=== PATIENT | male | born 1990 | race Two or more races ===

== ENCOUNTER 2022-03-03 05:45 | Emergency (ER) | payer SELFPAY ==
[~2022-03-03] VITALS: Ht 165.1 cm; Wt 136.4 kg
[2022-03-03] MEDS ORDERED: ASPIRIN CHEWABLE 81 MG TABLET. PO ONE (06:00)
[2022-03-03 06:31] LABS: BASO % 0 % (0-3); EOS # 0.1 x10^3/uL (0.0-0.7); EOS % 1 % (0-3); HEMATOCRIT 43.3 % (39.0-53.0); HEMOGLOBIN 14.8 g/dL (13.0-17.5); LYMPH # 2.4 x10^3/uL (1.0-4.8); LYMPH % 20 % (24-48); MEAN CORPUSCULAR HEMOGLOBIN 30 pg (25-35); MEAN CORPUSCULAR HGB CONC 34 g/dL (31-37); MEAN CORPUSCULAR VOLUME 87 fL (79-100); MONO # 1.3 x10^3/uL (0.0-1.1); MONO % 10 % (0-9); NEUT # 8.5 x10^3/uL (1.8-7.7); NEUT % 69 % (31-73); PLATELET COUNT 249 x10^3/uL (140-400); RED BLOOD COUNT 4.99 x10^6/uL (4.30-5.70); RED CELL DISTRIBUTION WIDTH 12.7 % (11.5-14.5); WHITE BLOOD COUNT 12.3 x10^3/uL (4.0-11.0)
[2022-03-03 06:41] LABS: CALCIUM 8.9 mg/dL (8.5-10.1); CREATININE 0.9 mg/dL (0.7-1.3); GFR 98.4; POTASSIUM 3.2 mmol/L (3.5-5.1)
--- NOTE | 2022-03-03 06:42 | RAD ---
Study: XR CHEST 1V Indication: Chest pain. Comparison: None. Findings: Mild asymmetric elevation of the right hemidiaphragm. Overlying streaky densities and a nodular opaci ty at the right hilum Small pleural effusion on the right. No pneumothorax. The cardiomediastinal yamileth houette is within normal limits for size. Impression: Small pleural effusion on the right and findings at the right lung base could represent a combination of atelectasis and pneumonia. Correlate for any clinical or laboratory findings that would suggest a ctive infection. Follow-up is recommended to confirm resolution. Electronically signed by: NICOLE BATRES MD (03/03/2022 6:40 AM) [facility]
--- NOTE | 2022-03-03 06:50 | EKG ---
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
[2022-03-03 06:52] LABS: ALBUMIN 3.7 g/dL (3.4-5.0); ALBUMIN/GLOBULIN RATIO 0.8 (1.0-1.7); MAGNESIUM 2.1 mg/dL (1.8-2.4); TOTAL BILIRUBIN 0.5 mg/dL (0.2-1.0); TOTAL PROTEIN 8.2 g/dL (6.4-8.2)
--- NOTE | 2022-03-03 06:52 | EKG ---
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
[2022-03-03 06:53] LABS: BARBITURATES NEG (NEG); BENZODIAZEPINES NEG (NEG); CANNABINOIDS NEG (NEG); COCAINE NEG (NEG); METHADONE NEG (NEG); OPIATES NEG (NEG); PHENCYCLIDINE NEG (NEG)
[2022-03-03 06:54] LABS: AMPHETAMINE/METHAMPHETAMINE NEG (NEG)
[2022-03-03] MEDS ORDERED: IOHEXOL 350 MG/ML 100 ML VIAL. IV ONE (07:00)
[2022-03-03] MEDS ORDERED: CONTRAST GIVEN. MC PRN (07:00)
[2022-03-03] MEDS ORDERED: IV NORMAL SALINE 1000ML BAG 1,000 ML IV ONE ×2 (07:15→07:45)
--- NOTE | 2022-03-03 07:27 | RAD ---
EXAMINATION: CT Pulmonary Angiogram with IV contrast INDICATION: Reason: CHEST PAIN possible PE / Spl. Instructions: OMNI 350 INJ. 100 MLS / History: COMPARISON: Similar chest radiograph TECHNIQUE: Using helical technique, CT data from the thoracic inlet through the upper abdomen was obt ained during rapid IV contrast infusion. The examination was timed to the pulmonary arterial system t o generate a CT angiographic study. 3D MIPS, sagittal and coronal reformats were generated. FINDINGS: Vascular: The study is diagnostic to the level of the lobar pulmonary arteries. Contrast bolus timing limits ev aluation of the segmental and subsegmental branches Pulmonary arteries: No evidence of acute or chronic pulmonary embolism. The pulmonary arteries are no rmal in size. Thoracic aorta: Normal in size. Pulmonary veins: Normal drainage into the left atrium. Coronary arteries: Normal origins. No detectable calcified coronary atherosclerosis. Systemic veins: Within normal limits. Heart: The heart is normal in size. No right heart strain. No pericardial effusion. Chest: Lungs/Pleura: Small right pleural effusion measuring greater than simple fluid. Right lower lobe cons olidation with associated air bronchograms may represent consolidation or atelectasis. 4 mm subpleura l nodule in the lateral segment of the right middle lobe. Additional subcentimeter nodular appearance along the pleura of the right lower lobe as seen on axial image 83 and 82. Central airway is patent. Mediastinum: Prominent right hilar lymph nodes measuring up to 8 mm in short axis few prominent right paratracheal lymph nodes. No pathologically enlarged mediastinal or left hilar adenopathy. The visua lized thyroid and the esophagus are unremarkable Axilla/Soft Tissue: No supraclavicular or axillary adenopathy. Regional soft tissues are within veronica l limits. Upper abdomen: Diffuse hepatic steatosis. No evidence of acute process in the visualized upper abdome n. Bones: No evidence of acute fractures or aggressive osseous lesions. IMPRESSION: Vascular: 1. No evidence of pulmonary embolism to the level of the lobar pulmonary arteries. Chest: 1. Small right pleural effusion measuring greater than simple fluid superimposed infection or possibl y malignant pleural effusion is not excluded. Right lower lobe consolidation possibly representing a combination of pneumonia and atelectasis. Nonspecific subpleural nodularity along the dependent porti on of the right lower lobe. Recommend follow-up to resolution to exclude underlying malignancy. 2. Prominent right hilar lymph nodes likely reactive. Recommend attention on follow-up. 3. Diffuse hepatic steatosis. PRQS compliance statement - One or more of the following individualized dose reduction techniques wer e utilized for this study: 1. Automated exposure control 2. Adjustment of the mA and/or kV according to patient size 3. Use of iterative reconstruction technique Electronically signed by: Kenyon Irvin DO (03/03/2022 7:25 AM) [id number]
[2022-03-03] MEDS ORDERED: AZITHROMYCIN 250 MG TABLET. PO ONE (07:45)
[2022-03-03] MEDS ORDERED: cefTRIAXone IV Push 1 GM VIAL. IVP ONE (07:45)
[2022-03-03] MEDS ORDERED: POTASSIUM CHLORIDE 20MEQ 100 ML IV ONE (08:00)
[2022-03-03] MEDS ORDERED: MORPHINE SULFATE 4 MG/ML INJ. IVP ONE (08:45)
[2022-03-03 09:45] VITALS: BP 179/80
[2022-03-03] MEDS ORDERED: CEFD300C PO (09:48)
[2022-03-03] MEDS ORDERED: AZIT250T6 PO (09:48)
--- NOTE | 2022-03-03 10:07 | PHYS DOC ---
Past Medical History Past Surgical History: No Surgical History Smoking Status: Never Smoker Alcohol Use: Rarely General Adult EDM: Chief Complaint: CHEST PAIN-CARDIAC NATURE HPI: HPI: Patient is a 31 year old male who presents with right-sided chest pain since last night. 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 He states that it gradually progressed until it became a sharp pain in the right side. Patient states that he feels warm as well. He states he feels short of breath. He is not requiring oxygen. His vital signs are within normal limits except for tachycardia. He is in sinus rhythm. He states he presented this morning because he was concerned about his symptoms. Review of Systems: Review of Systems: Constitutional: Denies fever or chills. Although patient states that he does feel warm [] Eyes: Denies change in visual acuity. [] HENT: Denies nasal congestion or sore throat. [] Respiratory: Denies cough positive shortness of breath. [] Cardiovascular: Positive chest pain no edema. [] GI: Denies abdominal pain, nausea, vomiting, bloody stools or diarrhea. [] : Denies dysuria. [] Musculoskeletal: Denies back pain or joint pain. [] Integument: Denies rash. [] Neurologic: Denies headache, focal weakness or sensory changes. [] Endocrine: Denies polyuria or polydipsia. [] Lymphatic: Denies swollen glands. [] Psychiatric: Denies depression or anxiety. [] Heart Score: C/O Chest Pain: Yes HEART Score for Chest Pain: HEART Score for Chest Pain Response (Comments) Value History Slighlty/Non-Suspicious 0 ECG Normal 0 Age < 45 0 Risk Factors No Risk Factors 0 Troponin < Normal Limit 0 Total 0 Risk Factors: Risk Factors: obesity. Risk Scores: Score 0 - 3: 2.5% MACE over next 6 weeks - Discharge Home Current Medications: Current Medications Medications (Trade) Dose Ordered Sig/Evgeny Start Time Stop Time Status Last Admin Dose Admin Aspirin (Aspirin Chewable) 324 mg 1X ONCE 03/03/22 06:00 03/03/22 06:06 DC 03/03/22 06:21 324 MG Azithromycin (Zithromax) 500 mg 1X ONCE 03/03/22 07:45 03/03/22 07:46 DC 03/03/22 08:23 500 MG Ceftriaxone Sodium (Rocephin) 1 gm 1X ONCE 03/03/22 07:45 03/03/22 07:46 DC 03/03/22 08:23 1 GM Info (CONTRAST GIVEN -- Rx MONITORING) 1 each PRN DAILY PRN 03/03/22 07:00 03/05/22 06:59 Iohexol (Omnipaque 350 Mg/ml) 100 ml 1X ONCE 03/03/22 07:00 03/03/22 07:01 DC 03/03/22 07:09 100 ML Morphine Sulfate (Morphine Sulfate) 4 mg 1X ONCE 03/03/22 08:45 03/03/22 08:46 DC 03/03/22 08:42 4 MG Potassium Chloride/Water 100 ml @ 50 mls/hr 1X ONCE 03/03/22 08:00 03/03/22 09:59 DC 03/03/22 07:22 50 MLS/HR Sodium Chloride 1,000 ml @ 1,000 mls/hr 1X ONCE 03/03/22 07:45 03/03/22 08:44 DC 03/03/22 08:30 1,000 MLS/HR Allergies: Allergies: Allergies Coded Allergies Type Severity Reaction Last Updated Verified No Known Drug Allergies 03/03/22 No Physical Exam: PE: Constitutional: Well developed, well nourished, no acute distress, non-toxic appearance. [] HENT: Normocephalic, atraumatic, bilateral external ears normal, oropharynx moist, no oral exudates, nose normal. [] Eyes: PERRLA, EOMI, conjunctiva normal, no discharge. [] Neck: Normal range of motion, no tenderness, supple, no stridor. [] Cardiovascular:Heart rate tachycardic, regular rhythm, no murmur [] Lungs & Thorax: Bilateral breath sounds diminished to auscultation [] Abdomen: Bowel sounds normal, soft, no tenderness, no masses, no pulsatile masses. [] Skin: Warm, dry, no erythema, no rash. [] Back: No tenderness, no CVA tenderness. [] Extremities: No tenderness, no cyanosis, no clubbing, ROM intact, no edema. [] Neurologic: Alert and oriented X 3, normal motor function, normal sensory function, no focal deficits noted. [] Psychologic: Affect normal, judgement normal, mood normal. [] Current Patient Data: Labs: Laboratory Tests Test 03/03/22 06:05 03/03/22 06:10 03/03/22 06:35 03/03/22 06:37 White Blood Count 12.3 x10^3/uL (4.0-11.0) H Red Blood Count 4.99 x10^6/uL (4.30-5.70) Hemoglobin 14.8 g/dL (13.0-17.5) Hematocrit 43.3 % (39.0-53.0) Mean Corpuscular Volume 87 fL (79-100) Mean Corpuscular Hemoglobin 30 pg (25-35) Mean Corpuscular Hemoglobin Concent 34 g/dL (31-37) Red Cell Distribution Width 12.7 % (11.5-14.5) Platelet Count 249 x10^3/uL (140-400) Neutrophils (%) (Auto) 69 % (31-73) Lymphocytes (%) (Auto) 20 % (24-48) L Monocytes (%) (Auto) 10 % (0-9) H Eosinophils (%) (Auto) 1 % (0-3) Basophils (%) (Auto) 0 % (0-3) Neutrophils # (Auto) 8.5 x10^3/uL (1.8-7.7) H Lymphocytes # (Auto) 2.4 x10^3/uL (1.0-4.8) Monocytes # (Auto) 1.3 x10^3/uL (0.0-1.1) H Eosinophils # (Auto) 0.1 x10^3/uL (0.0-0.7) Basophils # (Auto) 0.0 x10^3/uL (0.0-0.2) Sodium Level 136 mmol/L (136-145) Potassium Level 3.2 mmol/L (3.5-5.1) L Chloride Level 100 mmol/L (98-107) Carbon Dioxide Level 25 mmol/L (21-32) Anion Gap 11 (6-14) Blood Urea Nitrogen 10 mg/dL (8-26) Creatinine 0.9 mg/dL (0.7-1.3) Estimated GFR (Cockcroft-Gault) 98.4 BUN/Creatinine Ratio 11 (6-20) Glucose Level 243 mg/dL (70-99) H Calcium Level 8.9 mg/dL (8.5-10.1) Magnesium Level 2.1 mg/dL (1.8-2.4) Total Bilirubin 0.5 mg/dL (0.2-1.0) Aspartate Amino Transferase (AST) 17 U/L (15-37) Alanine Aminotransferase (ALT) 46 U/L (16-63) Alkaline Phosphatase 90 U/L (46-116) Troponin I High Sensitivity 5 ng/L (4-75) KG-Ubc-Z-Type Natriuretic Peptide 17 pg/mL (0-124) Total Protein 8.2 g/dL (6.4-8.2) Albumin 3.7 g/dL (3.4-5.0) Albumin/Globulin Ratio 0.8 (1.0-1.7) L Lipase 78 U/L (73-393) Lactic Acid Level 1.0 mmol/L (0.4-2.0) Urine Opiates Screen Neg (NEG) Urine Methadone Screen Neg (NEG) Urine Barbiturates Neg (NEG) Urine Phencyclidine Screen Neg (NEG) Urine Amphetamine/Methamphetamine Neg (NEG) Urine Benzodiazepines Screen Neg (NEG) Urine Cocaine Screen Neg (NEG) Urine Cannabinoids Screen Neg (NEG) Urine Ethyl Alcohol Neg (NEG) D-Dimer (Concetta) 2.02 ug/mlFEU (0.00-0.50) H Test 03/03/22 06:50 03/03/22 09:13 SARS-CoV-2 Antigen (Rapid) Negative (NEGATIVE) Troponin I High Sensitivity 5 ng/L (4-75) Laboratory Tests 03/03/22 06:05 Laboratory Tests 03/03/22 06:05 Vital Signs: Vital Signs Date Time Temp Pulse Resp B/P (MAP) Pulse Ox O2 Delivery O2 Flow Rate FiO2 03/03/22 08:42 20 95 03/03/22 08:30 93 164/89 (114) Room Air 03/03/22 05:55 98.2 98.2 EKG: EKG: Sinus tachycardia [] Radiology/Procedures: Radiology/Procedures: Chest x-ray with right lower lobe pneumonia versus atelectasis [] Impression: 31-year-old male with right-sided pneumonia, community-acquired pneumonia Course & Med Decision Making: Course & Med Decision Making Pertinent Labs and Imaging studies reviewed. (See chart for details) 31-year-old male with community-acquired pneumonia. Consistent with CT scan and chest x-ray. Pulmonary embolus ruled out. CT scan noted that there may be an underlying malignancy and should follow-up for repeat imaging after resolution of pneumonia. Patient was given antibiotics as well as fluids in the emergency department. He was given 2 L normal saline as well as ceftriaxone and azithromycin. Patient was monitored. Pain was controlled. Patient did well after receiving medications. He was given prescriptions for oral medications for his antibiotics. Patient was stable at the time of discharge patient was comfortable going home for self-care. Patient stated that he will follow-up with his primary care physician next week. He was instructed that he should request imaging to review the chest again. Patient states that he would comply. Otherwise patient is doing well. All questions answered. Patient stable for time discharge, no criteria for inpatient admission. Dragon Disclaimer: Dragon Disclaimer: This electronic medical record was generated, in whole or in part, using a voice recognition dictation system. Departure Departure Impression: Primary Impression: Community acquired pneumonia Disposition: HOME / SELF CARE / HOMELESS Condition: GOOD Patient Instructions: Pneumonia, Adult, [id number] Additional Instructions: Termine joelle antibioticos Jamison seguimiento con saunders doctor de cabezera en ashlee semana Si se siente peor, puede regresar a la emergencia para evaluacion Scripts Cefdinir (CEFDINIR) 300 Mg Capsule 1 CAP PO BID, #14 CAP Prov: ZANDER JOYCE MD 03/03/22 Azithromycin (AZITHROMYCIN TABLET) 250 Mg Tablet 250 MG PO DAILY for ANTI-BIOTIC, #4 TAB 0 Refills Prov: ZANDER JOYCE MD 03/03/22 ZANDER JOYCE MD Mar 03, 2022 10:07
== END 2022-03-03 09:56 | disposition home or self-care (01) ==
LOC: ER 05:45
DX: J18.9 Pneumonia, unspecified organism (principal); Z20.822 Contact with and (suspected) exposure to COVID-19
CPT/HCPCS: 36415; 71045; 71275; 80053; 80307; 83605; 83690; 83735; 83880; 84484; 85025; 85379; 87426; 93005; 96365; 96375; 99285; J0696; J2270; J3480; J7030; Q9967

== ENCOUNTER 2022-04-05 15:52 | Inpatient (IN) | payer SELFPAY ==
[~2022-04-05] VITALS: Ht 180.3 cm; Wt 115.3 kg
[~2022-04-05 15:52] MED LIST: AZIT250T6 PO; CEFD300C PO
--- NOTE | 2022-04-05 16:19 | EKG ---
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
[2022-04-05] MEDS ORDERED: ACETAMINOPHEN 325 MG TABLET. PO ONE (16:30)
[2022-04-05] MEDS ORDERED: IV NORMAL SALINE 1000ML BAG 1,000 ML IV ONE (16:30)
--- NOTE | 2022-04-05 16:41 | RAD ---
XR CHEST 1V History: Shortness of breath Comparison: CT and chest x-ray 03/03/2022 Technique: Portable AP radiograph of the chest. Findings: Increasing now large right pleural effusion with adjacent right airspace opacity. No left pleural eff usion. No pneumothorax. Cardiomediastinal silhouette and pulmonary vasculature are within normal limi ts. Osseous structures and soft tissues are unremarkable. Impression: 1. Increasing now large right pleural effusion. Adjacent opacity may represent compressive atelectas is however infection and mass are not excluded. Electronically signed by: Jayy Wheeler MD (04/05/2022 4:39 PM) [id number]
[2022-04-05] MEDS ORDERED: cefTRIAXone IV Push 1 GM VIAL. IVP ONE (17:00)
[2022-04-05] MEDS ORDERED: DOXYCYCLINE HYCLATE 100 MG in IV DEXTROSE 5% 100ML 100 ML IV ONE (17:00)
[2022-04-05 17:23] LABS: BASO % 0 % (0-3); EOS % 0 % (0-3); HEMATOCRIT 33.6 % (39.0-53.0); HEMOGLOBIN 11.6 g/dL (13.0-17.5); LYMPH % 14 % (24-48); MEAN CORPUSCULAR HEMOGLOBIN 29 pg (25-35); MEAN CORPUSCULAR HGB CONC 34 g/dL (31-37); MEAN CORPUSCULAR VOLUME 84 fL (79-100); MONO # 0.7 x10^3/uL (0.0-1.1); MONO % 9 % (0-9); NEUT # 5.9 x10^3/uL (1.8-7.7); NEUT % 77 % (31-73); PLATELET COUNT 426 x10^3/uL (140-400); RED BLOOD COUNT 3.98 x10^6/uL (4.30-5.70); RED CELL DISTRIBUTION WIDTH 13.6 % (11.5-14.5); WHITE BLOOD COUNT 7.6 x10^3/uL (4.0-11.0)
[2022-04-05] MEDS ORDERED: IPRATRPIUM/ALBUTEROL 0.5/2.5MG 3 ML NEBU. ONE (17:26)
[2022-04-05] MEDS: IPRATRPIUM/ALBUTEROL 0.5/2.5MG 3 ML NEBU. NEB SCH ×2 (17:31→20:32)
--- NOTE | 2022-04-05 17:43 | PHYS DOC ---
Past Medical History Past Surgical History: No Surgical History Smoking Status: Never Smoker Alcohol Use: Rarely General Adult EDM: Chief Complaint: SHORTNESS OF BREATH HPI: HPI: 31-year-old male, past medical history of obesity, otherwise healthy, recently diagnosed with community-acquired pneumonia 1 month ago, discharged on a course of azithromycin, presents with persistent right-sided chest pain, fever, shortness of breath. Denies drug use. Review of Systems: Review of Systems: Constitutional: + fever/ chills. [] Eyes: Denies change in visual acuity. [] HENT: Denies nasal congestion or sore throat. [] Respiratory: +cough & shortness of breath. [] Cardiovascular: +chest pain, noedema. [] GI: Denies abdominal pain, nausea, vomiting, bloody stools or diarrhea. [] : Denies dysuria. [] Musculoskeletal: Denies back pain or joint pain. [] Integument: Denies rash. [] Neurologic: Denies headache, focal weakness or sensory changes. [] Endocrine: Denies polyuria or polydipsia. [] Heart Score: C/O Chest Pain: N/A Risk Factors: Risk Factors: DM, Current or recent (<one month) smoker, HTN, HLP, family history of CAD, obesity. Risk Scores: Score 0 - 3: 2.5% MACE over next 6 weeks - Discharge Home Score 4 - 6: 20.3% MACE over next 6 weeks - Admit for Clinical Observation Score 7 - 10: 72.7% MACE over next 6 weeks - Early Invasive Strategies Current Medications: Current Medications Medications (Trade) Dose Ordered Sig/Evgeny Start Time Stop Time Status Last Admin Dose Admin Acetaminophen (Tylenol) 650 mg 1X ONCE 04/05/22 16:30 04/05/22 16:31 DC 04/05/22 17:17 650 MG Albuterol/ Ipratropium (Duoneb) 3 ml STK-MED ONCE 04/05/22 17:26 04/05/22 17:26 DC Ceftriaxone Sodium (Rocephin) 1 gm Q24H 04/06/22 17:00 Doxycycline Hyclate 100 mg/ Dextrose 100 ml @ 50 mls/hr Q12HR 04/06/22 09:00 Sodium Chloride 1,000 ml @ 999 mls/hr 1X ONCE 04/05/22 16:30 04/05/22 17:30 DC 04/05/22 17:17 999 MLS/HR Allergies: Allergies: Allergies Coded Allergies Type Severity Reaction Last Updated Verified No Known Drug Allergies 03/03/22 No Physical Exam: PE: Constitutional: Tired appearing, well developed, well nourished, in mild distress, non-toxic appearance. [] HENT: Normocephalic, atraumatic, bilateral external ears normal, oropharynx moist, no oral exudates, nose normal. [] Eyes: PERRLA, EOMI, conjunctiva normal, no discharge. [] Neck: Normal range of motion, no tenderness, supple, no stridor. [] Cardiovascular: sinus tachycardia, no murmur [] Lungs & Thorax: O2 sat 93 on RA, decreased breath sounds R side [] Abdomen: Bowel sounds normal, soft, no tenderness, no masses, no pulsatile masses. [] Skin: Warm, dry, no erythema, no rash. [] Back: No tenderness, no CVA tenderness. [] Extremities: No tenderness, no cyanosis, no clubbing, ROM intact, no edema. [] Neurologic: Alert and oriented X 3, normal motor function, normal sensory function, no focal deficits noted. [] Psychologic: Affect normal, judgement normal, mood normal. [] Current Patient Data: Labs: Laboratory Tests Test 04/05/22 17:10 White Blood Count 7.6 x10^3/uL (4.0-11.0) Red Blood Count 3.98 x10^6/uL (4.30-5.70) L Hemoglobin 11.6 g/dL (13.0-17.5) L Hematocrit 33.6 % (39.0-53.0) L Mean Corpuscular Volume 84 fL (79-100) Mean Corpuscular Hemoglobin 29 pg (25-35) Mean Corpuscular Hemoglobin Concent 34 g/dL (31-37) Red Cell Distribution Width 13.6 % (11.5-14.5) Platelet Count 426 x10^3/uL (140-400) H Neutrophils (%) (Auto) 77 % (31-73) H Lymphocytes (%) (Auto) 14 % (24-48) L Monocytes (%) (Auto) 9 % (0-9) Eosinophils (%) (Auto) 0 % (0-3) Basophils (%) (Auto) 0 % (0-3) Neutrophils # (Auto) 5.9 x10^3/uL (1.8-7.7) Lymphocytes # (Auto) 1.0 x10^3/uL (1.0-4.8) Monocytes # (Auto) 0.7 x10^3/uL (0.0-1.1) Eosinophils # (Auto) 0.0 x10^3/uL (0.0-0.7) Basophils # (Auto) 0.0 x10^3/uL (0.0-0.2) Laboratory Tests 04/05/22 17:10 Vital Signs: Vital Signs Date Time Temp Pulse Resp B/P (MAP) Pulse Ox O2 Delivery O2 Flow Rate FiO2 04/05/22 17:31 97 Room Air 04/05/22 16:00 103.1 144 22 132/77 (95) 103.1 EKG: EKG: [] Radiology/Procedures: Radiology/Procedures: [] Course & Med Decision Making: Course & Med Decision Making Pertinent Labs and Imaging studies reviewed. (See chart for details) Additional Social History: PMD from non-affiliated facility. Patient Lives at home. Family History: Non-pertinent to today's complaint. Nursing Notes Reviewed Previous Medical Records requested via [facility] Web: Reviewed by me. EMERGENT LABS AND DIAGNOSTIC STUDIES: Results were reviewed and interpreted by me as below 12-lead EKG Interpretation by Krys Rollins MD: Normal Sinus Rhythm at 139 beats per minute Normal axis Normal intervals No ectopy No PVC No other acute ST or T wave abnormalities Overall impression is abnormal EKG Chest X-ray was interpreted by Radiology, also reviewed by myself. REASON: sob PROCEDURE: PORTABLE CHEST 1V Impression: 1. Increasing now large right pleural effusion. Adjacent opacity may represent compressive atelectasis however infection and mass are not excluded. EMERGENCY DEPARTMENT COURSE/ MEDICAL DECISION MAKING: The patient was placed on a cardiac rehab nurse, continuous pulse oximetry and was given supplemental oxygen. I examined the patient, evaluated and addressed patient's chief complaint. High suspicion for pneumonia with r sided effusion, possibly empyema. Currently sat 93 on RA. Anticipate IR inpatient for possible drainage. Plan tele admission. The patient was treated with ceftriaxone, doxycycline, tylenol, IV fluids After evaluation, I believe the patient is at risk for decompensation and will require admission. However, patients abnormal vital signs/labs are not consistent with sepsis, and the patient does not meet the criteria for sepsis at this time. I discussed the patient's case with Dr. Brandon, who expressed understanding and agreed to admit the patient. I suspect the patient will be hospitalized for at least 2 midnights. DIAGNOSTIC IMPRESSION: 1. Pneumonia 2. pleural effusion 3. fever 4. SOB DISPOSITION: Disposition: Admit to tele under the service of Dr. Brandon Condition: Antionette Pan Disclaimer: Viviane Disclaimer: This electronic medical record was generated, in whole or in part, using a voice recognition dictation system. Departure Departure Impression: Primary Impression: Fever Additional Impressions: SOB (shortness of breath) Pleural effusion Right lower lobe pneumonia Disposition: ADMITTED INPATIENT Condition: MARYELLEN GARCÍA MD April 05, 2022 17:43
[2022-04-05 17:47] LABS: CALCIUM 8.1 mg/dL (8.5-10.1); CREATININE 0.9 mg/dL (0.7-1.3); GFR 98.4; POTASSIUM 3.9 mmol/L (3.5-5.1)
[2022-04-05 17:55] LABS: ALBUMIN 1.9 g/dL (3.4-5.0); ALBUMIN/GLOBULIN RATIO 0.3 (1.0-1.7); TOTAL BILIRUBIN 0.9 mg/dL (0.2-1.0); TOTAL PROTEIN 7.9 g/dL (6.4-8.2)
--- NOTE | 2022-04-05 18:43 | HP ---
DATE OF SERVICE: 04/05/2022 ADMIT DATE: 04/05/2022 CHIEF COMPLAINT: Shortness of breath, cough, fevers, weakness. HISTORY OF PRESENT ILLNESS: The patient is a pleasant, relatively healthy 31-year-old male who presented with the above chief complaints. Basically, he had pneumonia recently. He was sent home with a Z-SWAPNIL and cefdinir. Now, he presents with shortness of breath, cough, fevers. His oxygen saturations 93% on room air. We did a chest x-ray showing a large right pleural effusion. I discussed the case with the ER physician. We are going to admit the patient and consult Pulmonary Medicine and Interventional Radiology. PAST MEDICAL HISTORY: Recent pneumonia. ALLERGIES: None. FAMILY HISTORY: Diabetes. SOCIAL HISTORY: Does not drink, smoke or take drugs. He works doing [employer]. He has a girlfriend. She is here and seems to be very good support for him. MEDICATIONS: Reviewed. He is on cefdinir and azithromycin. REVIEW OF SYSTEMS: GENERAL: He complains of fevers. SKIN: No bruising, hair changes or rashes. EYES: No blurred, double or loss of vision. NOSE AND THROAT: No history of nosebleeds, hoarseness or sore throat. HEART: No history of palpitations, chest pain or shortness of breath on exertion. PULMONARY: He complains of shortness of breath. GASTROINTESTINAL: Denies changes in appetite, nausea, vomiting, diarrhea or constipation. GENITOURINARY: No history of frequency, urgency, hesitancy or nocturia. NEUROLOGIC: Denies history of numbness, tingling, tremor or weakness. PSYCHIATRIC: No history of panic, anxiety or depression. ENDOCRINE: No history of heat or cold intolerance, polyuria or polydipsia. EXTREMITIES: Denies muscle weakness, joint pain, pain on walking or stiffness. PHYSICAL EXAMINATION: VITALS: Within normal limits and are stable. GENERAL: No apparent distress. Alert and oriented. HEENT: Normal cephalic atraumatic, external auditory canals are patent. EYES: Extraocular muscles are intact, pupils are equally round and reactive to light and accommodation. MUSCULOSKELETAL: Well developed, well nourished, good range of motion. ENDOCRINE: No thyromegaly was palpated. LYMPHATICS: No cervical chain or axillary nodes were noted. HEMATOPOIETIC: No bruising. NECK: Supple, no JVD, no thyromegaly was noted. LUNGS: He has decreased breath sounds on the right. HEART: RRR, S1, S2 present. Peripheral pulses intact, no obvious murmurs were noted. ABDOMEN: Soft, nontender. Positive bowel sounds no organomegaly, normal bowel sounds. EXTREMITIES: Without any cyanosis, clubbing, or edema. Pedal pulses intact, Homans sign is negative. NEUROLOGIC: Normal speech, normal tone. A and O x 3, moves all extremities, no obvious focal deficits. PSYCHIATRIC: Normal affect, normal mood. Stable. SKIN: No ulcerations or rashes, good skin turgor, no jaundice. VASCULAR: Good capillary refill, neurovascular bundle appears to be intact. DIAGNOSTIC DATA: Chest x-ray shows a large right pleural effusion. LABORATORY DATA: Pending. ASSESSMENT AND PLAN: Large right pleural effusion after recent pneumonia. The patient will be admitted. We will start IV antibiotics, breathing treatments, oxygen. Consult Pulmonary. Consult Interventional Radiology to consider thoracentesis. Trend labs. Home meds. Deep venous thrombosis prophylaxis. Full code. GUILLERMINA/JLUIANNA DR: Lewis TID: [id number]
[2022-04-05 19:15] VITALS: BP 104/73
[2022-04-05] MEDS ORDERED: ACETAMINOPHEN 325 MG TABLET. PO PRN (20:15)
[2022-04-05] MEDS: IV NORMAL SALINE 1000ML BAG 1,000 ML IV SCH ×2 (22:22→23:40)
[2022-04-05 23:00] VITALS: BP 138/78
[2022-04-06] VITALS (7 sets, daily range): BP systolic 111–126; BP diastolic 63–74
[2022-04-06] MEDS ORDERED: C.DIFF MED SCREEN BY RX. MC ONE (06:45)
[2022-04-06] MEDS: IPRATRPIUM/ALBUTEROL 0.5/2.5MG 3 ML NEBU. NEB SCH ×3 (07:02→15:31)
[2022-04-06] MEDS: DOXYCYCLINE HYCLATE 100 MG in IV DEXTROSE 5% 100ML 100 ML IV SCH ×2 (08:53→21:13)
--- NOTE | 2022-04-06 09:07 | PDOC ---
PULMONARY PROGRESS NOTES DATE: 04/06/22 TIME: 09:06 Vitals Vital Signs Date Time Temp Pulse Resp B/P (MAP) Pulse Ox O2 Delivery O2 Flow Rate FiO2 04/06/22 07:02 95 Nasal Cannula 2.0 04/06/22 07:00 98.8 99 20 126/73 (90) 98.8 Labs Laboratory Tests Test 04/05/22 17:07 04/05/22 17:10 04/05/22 18:47 04/05/22 21:48 Lactic Acid Level 2.0 mmol/L (0.4-2.0) White Blood Count 7.6 x10^3/uL (4.0-11.0) Red Blood Count 3.98 x10^6/uL (4.30-5.70) Hemoglobin 11.6 g/dL (13.0-17.5) Hematocrit 33.6 % (39.0-53.0) Mean Corpuscular Volume 84 fL (79-100) Mean Corpuscular Hemoglobin 29 pg (25-35) Mean Corpuscular Hemoglobin Concent 34 g/dL (31-37) Red Cell Distribution Width 13.6 % (11.5-14.5) Platelet Count 426 x10^3/uL (140-400) Neutrophils (%) (Auto) 77 % (31-73) Lymphocytes (%) (Auto) 14 % (24-48) Monocytes (%) (Auto) 9 % (0-9) Eosinophils (%) (Auto) 0 % (0-3) Basophils (%) (Auto) 0 % (0-3) Neutrophils # (Auto) 5.9 x10^3/uL (1.8-7.7) Lymphocytes # (Auto) 1.0 x10^3/uL (1.0-4.8) Monocytes # (Auto) 0.7 x10^3/uL (0.0-1.1) Eosinophils # (Auto) 0.0 x10^3/uL (0.0-0.7) Basophils # (Auto) 0.0 x10^3/uL (0.0-0.2) Sodium Level 129 mmol/L (136-145) Potassium Level 3.9 mmol/L (3.5-5.1) Chloride Level 94 mmol/L (98-107) Carbon Dioxide Level 25 mmol/L (21-32) Anion Gap 10 (6-14) Blood Urea Nitrogen 11 mg/dL (8-26) Creatinine 0.9 mg/dL (0.7-1.3) Estimated GFR (Cockcroft-Gault) 98.4 BUN/Creatinine Ratio 12 (6-20) Glucose Level 203 mg/dL (70-99) Calcium Level 8.1 mg/dL (8.5-10.1) Total Bilirubin 0.9 mg/dL (0.2-1.0) Aspartate Amino Transf (AST/SGOT) 49 U/L (15-37) Alanine Aminotransferase (ALT/SGPT) 42 U/L (16-63) Alkaline Phosphatase 119 U/L (46-116) Troponin I High Sensitivity 5 ng/L (4-75) 6 ng/L (4-75) 5 ng/L (4-75) QY-Xjd-K-Type Natriuretic Peptide 121 pg/mL (0-124) Total Protein 7.9 g/dL (6.4-8.2) Albumin 1.9 g/dL (3.4-5.0) Albumin/Globulin Ratio 0.3 (1.0-1.7) SARS-CoV-2 Antigen (Rapid) Negative (NEGATIVE) Laboratory Tests Test 04/05/22 17:07 04/05/22 17:10 04/05/22 18:47 04/05/22 21:48 Lactic Acid Level 2.0 mmol/L (0.4-2.0) White Blood Count 7.6 x10^3/uL (4.0-11.0) Red Blood Count 3.98 x10^6/uL (4.30-5.70) Hemoglobin 11.6 g/dL (13.0-17.5) Hematocrit 33.6 % (39.0-53.0) Mean Corpuscular Volume 84 fL (79-100) Mean Corpuscular Hemoglobin 29 pg (25-35) Mean Corpuscular Hemoglobin Concent 34 g/dL (31-37) Red Cell Distribution Width 13.6 % (11.5-14.5) Platelet Count 426 x10^3/uL (140-400) Neutrophils (%) (Auto) 77 % (31-73) Lymphocytes (%) (Auto) 14 % (24-48) Monocytes (%) (Auto) 9 % (0-9) Eosinophils (%) (Auto) 0 % (0-3) Basophils (%) (Auto) 0 % (0-3) Neutrophils # (Auto) 5.9 x10^3/uL (1.8-7.7) Lymphocytes # (Auto) 1.0 x10^3/uL (1.0-4.8) Monocytes # (Auto) 0.7 x10^3/uL (0.0-1.1) Eosinophils # (Auto) 0.0 x10^3/uL (0.0-0.7) Basophils # (Auto) 0.0 x10^3/uL (0.0-0.2) Sodium Level 129 mmol/L (136-145) Potassium Level 3.9 mmol/L (3.5-5.1) Chloride Level 94 mmol/L (98-107) Carbon Dioxide Level 25 mmol/L (21-32) Anion Gap 10 (6-14) Blood Urea Nitrogen 11 mg/dL (8-26) Creatinine 0.9 mg/dL (0.7-1.3) Estimated GFR (Cockcroft-Gault) 98.4 BUN/Creatinine Ratio 12 (6-20) Glucose Level 203 mg/dL (70-99) Calcium Level 8.1 mg/dL (8.5-10.1) Total Bilirubin 0.9 mg/dL (0.2-1.0) Aspartate Amino Transf (AST/SGOT) 49 U/L (15-37) Alanine Aminotransferase (ALT/SGPT) 42 U/L (16-63) Alkaline Phosphatase 119 U/L (46-116) Troponin I High Sensitivity 5 ng/L (4-75) 6 ng/L (4-75) 5 ng/L (4-75) EM-Hsw-H-Type Natriuretic Peptide 121 pg/mL (0-124) Total Protein 7.9 g/dL (6.4-8.2) Albumin 1.9 g/dL (3.4-5.0) Albumin/Globulin Ratio 0.3 (1.0-1.7) SARS-CoV-2 Antigen (Rapid) Negative (NEGATIVE) Medications Active Scripts Medications Dose Route/Sig Max Daily Dose Days Date Category No Known Medications Prior To Admisstion (Info) Each 1 Each MC 1X 04/06/22 Reported Impression . Full note dictated Suspect pneumonia with parapneumonic effusion See orders ALBA CHE MD April 06, 2022 09:07
--- NOTE | 2022-04-06 10:53 | CONS ---
DATE OF CONSULTATION: 04/06/2022 ATTENDING PHYSICIAN: Juan Diego Brandon DO. REASON FOR CONSULTATION: The patient is seen in pulmonary consultation at the request of Dr. Brandon for abnormal x-ray revealing an effusion. HISTORY OF PRESENT ILLNESS: The patient is a 31-year-old with a history of obesity, otherwise history was recently diagnosed with community-acquired pneumonia a month ago and was discharged home on azithromycin. He presented with persistent right-sided shortness of breath, fever, chills and abnormal x-ray. I personally reviewed the x-ray, which revealed a large right-sided effusion. The patient denies any exposures to COVID-19 viral pneumonia or any lung with influenza. PAST MEDICAL HISTORY: Basically unremarkable. He was seen in the Emergency Room on 03/03/2022 with right-sided pain, presented from previous night. At that time, it was felt that the patient had community-acquired pneumonia, was discharged home. PAST SURGICAL HISTORY: None. HOME MEDICATIONS: None. REVIEW OF SYSTEMS: As indicated above, otherwise other systems were reviewed and negative. CURRENT MEDICATIONS: List was reviewed. ALLERGIES: No known drug allergies. CURRENT MEDICATIONS: He is currently on ceftriaxone and doxycycline IV. PHYSICAL EXAMINATION: VITAL SIGNS: Stable. O2 saturation was greater than 92%. Yesterday, he had a fever of 103.1. HEENT: Eyes: The sclerae were nonicteric. NECK: Jugular venous distention was not elevated. No lymphadenopathy. CHEST: Full expansion. LUNGS: Diminished breath sounds at the right base. CARDIOVASCULAR: Regular rate and rhythm with S1, S2, no S3. ABDOMEN: Soft, nontender, nondistended. EXTREMITIES: No clubbing, cyanosis or pitting edema. LABORATORY DATA: White count was normal, hemoglobin and hematocrit noted. Electrolytes were noted. Albumin was low. Lactic acid level was not elevated. IMAGING STUDIES: Chest x-ray reviewed as indicated above. IMPRESSION: 1. Progressive dyspnea secondary to pneumonia with parapneumonic effusion. 2. Abnormal x-ray, compatible with a parapneumonic effusion. 3. Fever secondary to above. 4. Sepsis. 5. Hyponatremia. PLAN: 1. Continue IV antibiotics. 2. Discussed with interventional radiologist, will proceed with thoracentesis. Risks, benefits and alternatives reviewed with the patient. He consented. 3. Sent pleural fluid for routine analysis. 4. Add DVT prophylaxis. 5. Nebulized treatments. I do appreciate the privilege in sharing in the patient's care. CHRISTY DR: Avila TID: [id number]
--- NOTE | 2022-04-06 10:59 | RAD ---
Procedure: US GUIDED THORACENTESIS 04/06/2022 Clinical Indication: Pneumonia, right pleural effusion Anesthesia: Local anesthesia only. Continuous cardiopulmonary monitoring was performed by independent qualified nursing personnel. Complications: None Consent: The procedure was explained in its entirety to the patient or the patients designated repre sentative by a member of the treatment team, including a discussion of the risks, benefits and common ly accepted alternatives to the procedure, as well as the expected consequences of no therapy whatsoe paige. Discussion of the risks included, but was not limited to, those that are most frequent and those that are rare but possibly severe or life-threatening, as well as the possibility of unforeseen comp lications. All questions were answered and informed consent was obtained. Sterility: All elements of maximal sterile barrier technique including the use of a cap, mask, steril e gown, sterile gloves, appropriate hand hygiene, and 2% chlorhexidine for cutaneous antisepsis (or a cceptable alternative antiseptic per current guidelines) were followed for this procedure. Patient was placed in the upright position. Limited ultrasound scanning over the back for localizatio n of the right pleural effusion. Overlying skin posteriorly was marked with ultrasound and then miladys rilely prepped and draped. Local anesthesia with 1% lidocaine. A 5 Fr Yueh catheter was then entere d into the pleural space and 500 cc of purulent fluid was were obtained utilizing negative suction lacey ttles. Samples were sent for lab analysis. There were no immediate complications. Sterile dressing w as placed. Impression: Right ultrasound-guided thoracentesis, 500 cc of purulent fluid was removed. Electronically signed by: Aiden Meneses MD (04/06/2022 10:56 AM) [id number]
[2022-04-06] MEDS: ONDANSETRON PF 4 MG/2 ML VIAL. IVP PRN (11:39)
[2022-04-06] MEDS: ENOXAPARIN 40 MG/0.4 ML SYRINGE. SQ SCH (11:39)
--- NOTE | 2022-04-06 12:12 | PDOC ---
[facility] PROGRESS NOTE Date of Service DOS: DATE: 04/06/22 TIME: 12:10 Chief Complaint Chief Complaint Large right pleural effusion after recent pneumonia. The patient will be admitted. We will start IV antibiotics, breathing treatments, oxygen. Consult Pulmonary. Consult Interventional Radiology to consider thoracentesis--> performed 04/06 500cc removed . Trend labs. Home meds. Deep venous thrombosis prophylaxis. Full code. History of Present Illness History of Present Illness 04/06 Patient evaluated examined at bedside after thoracentesis. C/o some pain around procedure site but breathing a bit improved. Fluid study results pending. Continue antibiotics. Pulmonary recommendations reviewed. Discussed with bedside RN., Vitals/I&O Vitals/I&O: Vital Signs Date Time Temp Pulse Resp B/P (MAP) Pulse Ox O2 Delivery O2 Flow Rate FiO2 04/06/22 10:49 95 Nasal Cannula 2.0 04/06/22 10:23 107 111/65 (80) 04/06/22 07:00 98.8 20 98.8 I & O 04/05/22 04/05/22 04/06/22 15:00 23:00 07:00 Intake Total 1000 ml 200 ml Output Total 0 ml Balance 1000 ml 200 ml Physical Exam General: Alert, Oriented X3, Cooperative Heart: Regular rate, Normal S1, Normal S2 Lungs: Other (decreased air entry) Abdomen: Normal bowel sounds, Soft, No tenderness Extremities: No edema, Normal pulses Skin: No significant lesion Labs Labs: Laboratory Tests Test 04/05/22 17:07 04/05/22 17:10 04/05/22 18:47 04/05/22 21:48 Lactic Acid Level 2.0 mmol/L (0.4-2.0) White Blood Count 7.6 x10^3/uL (4.0-11.0) Red Blood Count 3.98 x10^6/uL (4.30-5.70) Hemoglobin 11.6 g/dL (13.0-17.5) Hematocrit 33.6 % (39.0-53.0) Mean Corpuscular Volume 84 fL (79-100) Mean Corpuscular Hemoglobin 29 pg (25-35) Mean Corpuscular Hemoglobin Concent 34 g/dL (31-37) Red Cell Distribution Width 13.6 % (11.5-14.5) Platelet Count 426 x10^3/uL (140-400) Neutrophils (%) (Auto) 77 % (31-73) Lymphocytes (%) (Auto) 14 % (24-48) Monocytes (%) (Auto) 9 % (0-9) Eosinophils (%) (Auto) 0 % (0-3) Basophils (%) (Auto) 0 % (0-3) Neutrophils # (Auto) 5.9 x10^3/uL (1.8-7.7) Lymphocytes # (Auto) 1.0 x10^3/uL (1.0-4.8) Monocytes # (Auto) 0.7 x10^3/uL (0.0-1.1) Eosinophils # (Auto) 0.0 x10^3/uL (0.0-0.7) Basophils # (Auto) 0.0 x10^3/uL (0.0-0.2) Sodium Level 129 mmol/L (136-145) Potassium Level 3.9 mmol/L (3.5-5.1) Chloride Level 94 mmol/L (98-107) Carbon Dioxide Level 25 mmol/L (21-32) Anion Gap 10 (6-14) Blood Urea Nitrogen 11 mg/dL (8-26) Creatinine 0.9 mg/dL (0.7-1.3) Estimated GFR (Cockcroft-Gault) 98.4 BUN/Creatinine Ratio 12 (6-20) Glucose Level 203 mg/dL (70-99) Calcium Level 8.1 mg/dL (8.5-10.1) Total Bilirubin 0.9 mg/dL (0.2-1.0) Aspartate Amino Transf (AST/SGOT) 49 U/L (15-37) Alanine Aminotransferase (ALT/SGPT) 42 U/L (16-63) Alkaline Phosphatase 119 U/L (46-116) Troponin I High Sensitivity 5 ng/L (4-75) 6 ng/L (4-75) 5 ng/L (4-75) TF-Zoc-L-Type Natriuretic Peptide 121 pg/mL (0-124) Total Protein 7.9 g/dL (6.4-8.2) Albumin 1.9 g/dL (3.4-5.0) Albumin/Globulin Ratio 0.3 (1.0-1.7) SARS-CoV-2 Antigen (Rapid) Negative (NEGATIVE) Assessment and Plan Assessmemt and Plan Problems Medical Problems: (1) Fever Status: Acute (2) Pleural effusion Status: Acute (3) Right lower lobe pneumonia Status: Acute (4) SOB (shortness of breath) Status: Acute Comment Review of Relevant I have reviewed the following items tam (where applicable) has been applied. Medications: Current Medications Medications (Trade) Dose Ordered Sig/Evgeny Route PRN Reason Start Time Stop Time Status Last Admin Dose Admin Acetaminophen (Tylenol) 650 mg 1X ONCE PO 04/05/22 16:30 04/05/22 16:31 DC 04/05/22 17:17 Sodium Chloride 1,000 ml @ 999 mls/hr 1X ONCE IV 04/05/22 16:30 04/05/22 17:30 DC 04/05/22 17:17 Ceftriaxone Sodium (Rocephin) 1 gm 1X ONCE IVP 04/05/22 17:00 04/05/22 17:01 DC 04/05/22 17:17 Doxycycline Hyclate 100 mg/ Dextrose 100 ml @ 50 mls/hr 1X ONCE IV 04/05/22 17:00 04/05/22 18:59 DC 04/05/22 17:24 Doxycycline Hyclate 100 mg/ Dextrose 100 ml @ 50 mls/hr Q12HR IV 04/06/22 09:00 04/06/22 08:53 Albuterol/ Ipratropium (Duoneb) 3 ml RTQID NEB 04/05/22 20:00 04/06/22 10:49 Sodium Chloride 1,000 ml @ 75 mls/hr [id number] IV 04/05/22 21:00 04/05/22 22:22 Ondansetron HCl (Zofran) 4 mg PRN Q6HRS PRN IVP NAUSEA/VOMITING 04/06/22 10:30 04/06/22 11:39 Enoxaparin Sodium (Lovenox 40mg Syringe) 40 mg Q24H SQ 04/06/22 11:00 04/06/22 11:39 Justifications for Admission Other Justification DUSTIN WALTERS MD April 06, 2022 12:12
[2022-04-06] MEDS: LACTOBACILLUS RHAMNOSUS GG 1 CAPSULE. PO SCH ×2 (13:18→21:12)
[2022-04-06] MEDS ORDERED: cefTRIAXone IV Push 1 GM VIAL. IVP SCH (17:00)
[2022-04-06 17:11] LABS: BF CLARITY TURBID; BF COLOR STRAW; BF SOURCE PLEURAL
[2022-04-06 17:12] LABS: BF RBC COUNT 25810 /cmm (Not Established)
[2022-04-06 17:28] LABS: BF WBC COUNT 381040 /cmm (Not Established)
[2022-04-06] MEDS: IV NORMAL SALINE 1000ML BAG 1,000 ML IV SCH (17:51)
[2022-04-07 03:00] VITALS: BP 116/80
[2022-04-07] MEDS: IV NORMAL SALINE 1000ML BAG 1,000 ML IV SCH (05:36)
[2022-04-07 07:00] VITALS: BP 114/64
[2022-04-07] MEDS: LACTOBACILLUS RHAMNOSUS GG 1 CAPSULE. PO SCH ×2 (08:05→21:00)
[2022-04-07] MEDS: DOXYCYCLINE HYCLATE 100 MG in IV DEXTROSE 5% 100ML 100 ML IV SCH (08:06)
[2022-04-07] MEDS: IPRATRPIUM/ALBUTEROL 0.5/2.5MG 3 ML NEBU. NEB SCH ×4 (08:18→21:40)
--- NOTE | 2022-04-07 10:59 | PDOC ---
[facility] PROGRESS NOTE Date of Service DOS: DATE: 04/07/22 TIME: 10:58 Chief Complaint Chief Complaint Large right pleural effusion after recent pneumonia. The patient will be admitted. We will start IV antibiotics, breathing treatments, oxygen. Consult Pulmonary. Consult Interventional Radiology to consider thoracentesis--> performed 04/06 500cc removed . Trend labs. Home meds. Deep venous thrombosis prophylaxis. Full code. Consult infectious disease History of Present Illness History of Present Illness 04/07 Evaluated examined at bedside. he was resting in bed pain controlled. Fluid studies showing gram-negative rods and gram-positive cocci in pleural fluid. We will escalate antibiotic and consult infectious diseases. Pulmonary consulted recommendations reviewed. Discussed with bedside RN. Continue current. 04/06 Patient evaluated examined at bedside after thoracentesis. C/o some pain around procedure site but breathing a bit improved. Fluid study results pending. Continue antibiotics. Pulmonary recommendations reviewed. Discussed with bedside RN., Vitals/I&O Vitals/I&O: Vital Signs Date Time Temp Pulse Resp B/P (MAP) Pulse Ox O2 Delivery O2 Flow Rate FiO2 04/07/22 08:18 97 Nasal Cannula 2.0 04/07/22 07:00 98.4 85 18 114/64 (81) 98.4 I & O 04/06/22 04/06/22 04/07/22 15:00 23:00 07:00 Intake Total 120 ml Output Total 650 ml 400 ml 750 ml Balance -650 ml -400 ml -630 ml Physical Exam General: Alert, Oriented X3, Cooperative Heart: Regular rate, Normal S1, Normal S2 Lungs: Other (decreased air entry) Abdomen: Normal bowel sounds, Soft, No tenderness Extremities: No edema, Normal pulses Skin: No significant lesion Assessment and Plan Assessmemt and Plan Problems Medical Problems: (1) Fever Status: Acute (2) Pleural effusion Status: Acute (3) Right lower lobe pneumonia Status: Acute (4) SOB (shortness of breath) Status: Acute Comment Review of Relevant I have reviewed the following items tam (where applicable) has been applied. Medications: Current Medications Medications (Trade) Dose Ordered Sig/Evgeny Route PRN Reason Start Time Stop Time Status Last Admin Dose Admin Ceftriaxone Sodium (Rocephin) 1 gm Q24H IVP 04/06/22 17:00 04/06/22 17:51 Enoxaparin Sodium (Lovenox 40mg Syringe) 40 mg Q24H SQ 04/06/22 11:00 04/06/22 11:39 Lactobacillus Rhamnosus (Culturelle) 1 cap BID PO 04/06/22 11:30 04/07/22 08:05 Justifications for Admission Other Justification DUSTIN WALTERS MD April 07, 2022 10:59
[2022-04-07] MEDS ORDERED: PIP/TAZO PER PHARMACY MC PRN (11:00)
--- NOTE | 2022-04-07 11:06 | PDOC ---
PULMONARY PROGRESS NOTES DATE: 04/07/22 TIME: 11:03 Subjective Patient feels better, appetite is better less short of air Vitals Vital Signs Date Time Temp Pulse Resp B/P (MAP) Pulse Ox O2 Delivery O2 Flow Rate FiO2 04/07/22 10:56 96 Nasal Cannula 2.0 04/07/22 07:00 98.4 85 18 114/64 (81) 98.4 ROS: No Nausea, No Chest Pain, No Abdominal Pain, No Increase Cough General: Alert Lungs: Other (Adequate airflow, somewhat decreased in the right lower lobe) Cardiovascular: S1, S2 Abdomen: Soft, Non-tender Neuro Exam: Alert Extremities: No Edema Skin: Warm Labs Laboratory Tests Test 04/05/22 17:07 04/05/22 17:10 04/05/22 18:47 04/05/22 21:48 Lactic Acid Level 2.0 mmol/L (0.4-2.0) White Blood Count 7.6 x10^3/uL (4.0-11.0) Red Blood Count 3.98 x10^6/uL (4.30-5.70) Hemoglobin 11.6 g/dL (13.0-17.5) Hematocrit 33.6 % (39.0-53.0) Mean Corpuscular Volume 84 fL (79-100) Mean Corpuscular Hemoglobin 29 pg (25-35) Mean Corpuscular Hemoglobin Concent 34 g/dL (31-37) Red Cell Distribution Width 13.6 % (11.5-14.5) Platelet Count 426 x10^3/uL (140-400) Neutrophils (%) (Auto) 77 % (31-73) Lymphocytes (%) (Auto) 14 % (24-48) Monocytes (%) (Auto) 9 % (0-9) Eosinophils (%) (Auto) 0 % (0-3) Basophils (%) (Auto) 0 % (0-3) Neutrophils # (Auto) 5.9 x10^3/uL (1.8-7.7) Lymphocytes # (Auto) 1.0 x10^3/uL (1.0-4.8) Monocytes # (Auto) 0.7 x10^3/uL (0.0-1.1) Eosinophils # (Auto) 0.0 x10^3/uL (0.0-0.7) Basophils # (Auto) 0.0 x10^3/uL (0.0-0.2) Sodium Level 129 mmol/L (136-145) Potassium Level 3.9 mmol/L (3.5-5.1) Chloride Level 94 mmol/L (98-107) Carbon Dioxide Level 25 mmol/L (21-32) Anion Gap 10 (6-14) Blood Urea Nitrogen 11 mg/dL (8-26) Creatinine 0.9 mg/dL (0.7-1.3) Estimated GFR (Cockcroft-Gault) 98.4 BUN/Creatinine Ratio 12 (6-20) Glucose Level 203 mg/dL (70-99) Calcium Level 8.1 mg/dL (8.5-10.1) Total Bilirubin 0.9 mg/dL (0.2-1.0) Aspartate Amino Transf (AST/SGOT) 49 U/L (15-37) Alanine Aminotransferase (ALT/SGPT) 42 U/L (16-63) Alkaline Phosphatase 119 U/L (46-116) Troponin I High Sensitivity 5 ng/L (4-75) 6 ng/L (4-75) 5 ng/L (4-75) IT-Jcb-P-Type Natriuretic Peptide 121 pg/mL (0-124) Total Protein 7.9 g/dL (6.4-8.2) Albumin 1.9 g/dL (3.4-5.0) Albumin/Globulin Ratio 0.3 (1.0-1.7) SARS-CoV-2 Antigen (Rapid) Negative (NEGATIVE) Test 04/06/22 10:16 Body Fluid Source Pleural Body Fluid Color Straw Body Fluid Clarity Turbid Body Fluid pH 5.11 Body Fluid Nucleated Cells 174631 /cmm (Not Body Fluid Total RBCs Counted 63535 /cmm (Not Medications Active Scripts Medications Dose Route/Sig Max Daily Dose Days Date Category No Known Medications Prior To Admisstion (Info) Each 1 Each 1X 04/06/22 Reported Impression . IMPRESSION: 1. Progressive dyspnea secondary to pneumonia with complicated parapneumonic effusion. 2. Abnormal x-ray, compatible with a complicated parapneumonic effusion. 3. Fever secondary to above. 4. Sepsis. 5. Hyponatremia. 6. Empyema status post thoracentesis Plan . Updated 04/07 Status post thoracentesis purulent material discussed with interventional radiologist pH compatible with empyema Need to monitor closely, if fluid reaccumulate's may require chest tube drainage with tPA infusion into the chest tube Continue current antibiotics Gram-negative rods and gram-positive cocci in pleural fluid analysis, switch to Zosyn and vancomycin 04/06 PLAN: 1. Continue IV antibiotics. 2. Discussed with interventional radiologist, will proceed with thoracentesis. Risks, benefits and alternatives reviewed with the patient. He consented. 3. Sent pleural fluid for routine analysis. 4. Add DVT prophylaxis. 5. Nebulized treatments. I do appreciate the privilege in sharing in the patient's care. ALBA CHE MD April 07, 2022 11:05
[2022-04-07 11:26] VITALS: BP 117/73
[2022-04-07] MEDS ORDERED: VANCOMYCIN 2 GM in IV DEXTROSE 5% 500 ML IV ONE (12:00)
[2022-04-07] MEDS: PIPERACILLIN/TAZOBACTAM 3.375 GM in IV NORMAL SALINE 50ML 50 ML IV SCH ×3 (12:07→23:51)
[2022-04-07] MEDS: ENOXAPARIN 40 MG/0.4 ML SYRINGE. SQ SCH (12:08)
[2022-04-07] MEDS: VANCOMYCIN PER PHARMACY MC PRN ×2 (14:46→14:49)
--- NOTE | 2022-04-07 14:59 | NUR ---
Pharmacy Vancomycin Dosing Note S:Consulted to monitor and dose vancomycin started 04/07/22. O:MARK ISABEL is a 31 year old M with Pneumonia . Height: 5 feet, 11 inches Weight: 115.3 kg [place] Body Weight: 75.30 Adjusted Body Weight: 91.30 Dosing Weight: Actual Other Antibiotics: zOSYN 3.375GM ivpb Q6HRS LABS: Last BUN: 11 Last Creatinine: 0.9 Creatinine Clearance: 154 mL/min Last WBC: 7.6 Last Procalcitonin: Tmax (past 24 hours): 98.7 Microbiology: GRAM STAIN-AER ROXANNE Final PMNS (WBCS): MANY GRAM NEGATIVE RODS: MANY GRAM POS COCCI CHAINS MANY I/O: 120/1800 Drug Levels: Last level: on at Last dose given 04/07/22 at 1425 Vancomycin Dosing: Loading Dose: 2000 mg x1 Dosing Weight: Actual Target Trough: 15-20 A: Based on weight and est. CrCl: P: 1. Give Vancomycin 2000mg, followed by Vancomycin 1500 mg IV q8h. 2. Follow up Trough level on 04/08/22 at 1330. 3. Pharmacy will continue to monitor, follow and adjust therapy as needed. Facundo Herman, [facility], 04/07/22 [id number]
[2022-04-07 15:13] VITALS: BP 126/71
[2022-04-07 19:00] VITALS: BP 122/78
[2022-04-07] MEDS: DOXYCYCLINE HYCLATE 100 MG TABLET PO SCH (21:14)
[2022-04-07] MEDS: VANCOMYCIN 1.5 GM in IV DEXTROSE 5% 500 ML IV SCH (21:14)
[2022-04-07 23:00] VITALS: BP 128/80
[2022-04-08] MEDS: IV NORMAL SALINE 1000ML BAG 1,000 ML IV SCH ×3 (02:37→22:40)
[2022-04-08 03:00] VITALS: BP 129/91
[2022-04-08] MEDS: PIPERACILLIN/TAZOBACTAM 3.375 GM in IV NORMAL SALINE 50ML 50 ML IV SCH ×4 (05:35→23:30)
[2022-04-08] MEDS: IPRATRPIUM/ALBUTEROL 0.5/2.5MG 3 ML NEBU. NEB SCH ×4 (05:46→19:48)
[2022-04-08] MEDS: VANCOMYCIN 1.5 GM in IV DEXTROSE 5% 500 ML IV SCH ×2 (06:28→14:46)
[2022-04-08 07:00] VITALS: BP 136/81
--- NOTE | 2022-04-08 07:46 | PDOC ---
PULMONARY PROGRESS NOTES DATE: 04/08/22 TIME: 07:45 Subjective Patient feels better, appetite is better less short of air Vitals Vital Signs Date Time Temp Pulse Resp B/P (MAP) Pulse Ox O2 Delivery O2 Flow Rate FiO2 04/08/22 05:46 95 Room Air 04/08/22 03:00 98.6 94 20 129/91 (104) 98.6 04/07/22 10:56 2.0 ROS: No Nausea, No Chest Pain, No Abdominal Pain, No Increase Cough General: Alert Lungs: Other (Adequate airflow, somewhat decreased in the right lower lobe) Cardiovascular: S1, S2 Abdomen: Soft, Non-tender Neuro Exam: Alert Extremities: No Edema Skin: Warm Labs Laboratory Tests Test 04/06/22 10:16 Body Fluid Source Pleural Body Fluid Color Straw Body Fluid Clarity Turbid Body Fluid pH 5.11 Body Fluid Nucleated Cells [id number] /cmm (Not Body Fluid Total RBCs Counted 00586 /cmm (Not Medications Active Scripts Medications Dose Route/Sig Max Daily Dose Days Date Category No Known Medications Prior To Admisstion (Info) Each 1 Each 1X 04/06/22 Reported Impression . IMPRESSION: 1. Progressive dyspnea secondary to pneumonia with complicated parapneumonic effusion. 2. Abnormal x-ray, compatible with a complicated parapneumonic effusion. 3. Fever secondary to above. 4. Sepsis. 5. Hyponatremia. 6. Empyema status post thoracentesis Plan . Updated 04/08 Chest x-ray reviewed, increasing pleural effusion Will check CT chest May require chest tube placement with tPA infusion Will consult IR Continue current support with antibiotics Updated 04/07 Status post thoracentesis purulent material discussed with interventional radiologist pH compatible with empyema Need to monitor closely, if fluid reaccumulate's may require chest tube drainage with tPA infusion into the chest tube Continue current antibiotics Gram-negative rods and gram-positive cocci in pleural fluid analysis, switch to Zosyn and vancomycin 04/06 PLAN: 1. Continue IV antibiotics. 2. Discussed with interventional radiologist, will proceed with thoracentesis. Risks, benefits and alternatives reviewed with the patient. He consented. 3. Sent pleural fluid for routine analysis. 4. Add DVT prophylaxis. 5. Nebulized treatments. I do appreciate the privilege in sharing in the patient's care. ALBA CHE MD April 08, 2022 07:45
--- NOTE | 2022-04-08 08:21 | RAD ---
INDICATION: Reason: empyema / Spl. Instructions: / History: COMPARISON: April 05, 2022 FINDINGS: Frontal view of chest obtained. Redemonstration of opacification of the majority of the right hemithorax with a small amount of aerat ed lung seen superiorly within the right chest. Overall this appears minimally decreased from prior. Cardiac silhouette is similar to prior. IMPRESSION: * Redemonstration of opacification of majority of the right hemithorax with a small amount of aerate d lung seen superiorly. Could be secondary to pleural effusion and airspace consolidation. Electronically signed by: Champ Lima MD (04/08/2022 8:19 AM) [id number]
[2022-04-08] MEDS: LACTOBACILLUS RHAMNOSUS GG 1 CAPSULE. PO SCH ×2 (08:36→21:24)
[2022-04-08] MEDS: DOXYCYCLINE HYCLATE 100 MG TABLET PO SCH ×2 (08:36→21:25)
[2022-04-08 11:00] VITALS: BP 142/89
[2022-04-08] MEDS: ENOXAPARIN 40 MG/0.4 ML SYRINGE. SQ SCH (11:51)
[2022-04-08 14:24] LABS: VANC TR 15.1 mcg/mL (10.0-20.0)
[2022-04-08] MEDS: VANCOMYCIN PER PHARMACY MC PRN (14:51)
--- NOTE | 2022-04-08 14:52 | NUR ---
Pharmacy Vancomycin Dosing Note S:Consulted to monitor and dose vancomycin started 04/07/22. O:MARK ISABEL is a 31 year old M with Pneumonia . Height: 5 feet, 11 inches Weight: 115.3 kg [place] Body Weight: 75.30 Adjusted Body Weight: 91.30 Dosing Weight: Actual Other Antibiotics: zOSYN 3.375GM ivpb Q6HRS LABS: Last BUN: 11 Last Creatinine: 0.9 Creatinine Clearance: 154 mL/min Last WBC: 7.6 Last Procalcitonin: 0.38 Tmax (past 24 hours): 98.7 Microbiology: GRAM STAIN-AER ROXANNE Final PMNS (WBCS): MANY GRAM NEGATIVE RODS: MANY GRAM POS COCCI CHAINS MANY I/O: 3317/950 Drug Levels: Last Trough level: 15.1 on 04/08/22 at 1336 Last dose given 04/07/22 at 1425 Vancomycin Dosing: Loading Dose: 2000 mg x1 Dosing Weight: Actual Target Trough: 15-20 A: Based on Trough of 15.1: P: 1. Continue Vancomycin 1500 mg IV q8h. 2. Follow up Trough level as needed. 3. Pharmacy will continue to monitor, follow and adjust therapy as needed. Facundo Herman [facility], 04/08/22 [id number]
[2022-04-08 15:00] VITALS: BP 146/90
--- NOTE | 2022-04-08 17:09 | RAD ---
EXAMINATION: CT THORAX WO (CT CHEST WITHOUT IV CONTRAST) CLINICAL HISTORY: Right empyema. Technique: Spiral CT acquisition of the chest from the thoracic inlet to the upper abdomen without co ntrast. CT Dose Reduction Employed: One or more of the following individualized dose reduction techniques wer e utilized for this examination: 1. Automated exposure control 2. Adjustment of the mA and/or kV ac cording to patient size 3. Use of iterative reconstruction technique. Comparison: Chest radiograph same day and 04/05/2022, CTA chest 03/03/2022 FINDINGS: Lung Parenchyma, Pleura, and Airways: Moderate to large empyema along the posterior right hemithorax with mild overlying air, likely nondependent air within the collection related to interval thoracente sis rather than pneumothorax. Essential complete collapse/consolidation within the right lower lobe. Moderate to marked patchy and consolidative opacities in the right middle lobe. Mild to moderate patc hy and confluent opacities in the right upper lobe. Mild subsegmental atelectasis and/or scarring in the lingula and dependent left lower lobe. Central airways patent. Lower Neck, Mediastinum, and Heart: Visualized thyroid gland within normal limits. Enlarged mediastin al and right hilar lymph nodes, likely reactive. Thoracic aorta and main pulmonary artery normal in c aliber. No evidence of coronary atherosclerotic calcification, however, it is of note that this exam is not optimized for assessment of the coronary arteries. Normal heart size. No pericardial effusion. Bones and Soft Tissues: Degenerative changes in the thoracic spine. Upper Abdomen: Partially visualized upper abdomen unremarkable. IMPRESSION: Moderate to large empyema in the posterior right hemithorax with likely nondependent air in the colle ction secondary to interval thoracentesis. Extensive patchy and confluent opacities throughout the right lung, likely a combination of pneumonia and atelectasis. Recommend continued follow-up to resolution. Electronically signed by: Marcin Pena DO (04/08/2022 5:06 PM) [facility]
[2022-04-08] MEDS: ONDANSETRON PF 4 MG/2 ML VIAL. IVP PRN (18:39)
--- NOTE | 2022-04-08 18:57 | NUR ---
Pt tachypneic, sweating, and coughing up copious amounts of pink tinged sputum. SpO2 90-93%. Dr. Sharpe notified. Orders received for cough syrup and IV steroids. Dr. Landin arrived at the bedside and gave additional orders for IV protonix and a GI consult for tomorrow morning. Arina GUERRERO translated all information to patient. Pt verbalized understanding. Will continue to monitor
[2022-04-08 19:00] VITALS: BP 135/75
[2022-04-08] MEDS ORDERED: PANTOPRAZOLE IV PUSH 40 MG VIAL. IVP ONE (19:00)
[2022-04-08] MEDS ORDERED: guaiFENesin/CODEINE 100mg/10mg 5 ML LIQUID PO PRN ×2 (19:00)
--- NOTE | 2022-04-08 19:20 | PDOC ---
[facility] PROGRESS NOTE Date of Service DOS: DATE: 04/08/22 TIME: 19:17 Chief Complaint Chief Complaint Large right pleural effusion after recent pneumonia. The patient will be admitted. We will start IV antibiotics, breathing treatments, oxygen. Consult Pulmonary. Consult Interventional Radiology to consider thoracentesis--> performed 04/06 500cc removed . Trend labs. Home meds. Deep venous thrombosis prophylaxis. Full code. Consult infectious disease History of Present Illness History of Present Illness 04/08 Patient evaluated examined at bedside. This morning he was resting in bed without complaint. Reevaluated patient in the evening and he was having profuse blood-tinged vomiting. Reported to me he was feeling terrible but no shelter supervisor used when i saw him; he did appear to be in quite a bit of distress. Pulm orders/recommendations reviewed. Given bloody vomitus start IV Protonix and GI consult; suspect hematemesis is secondary to respiratory infection but Protonix and GI consult for completeness sake. Discussed with bedside RN. 04/07 Evaluated examined at bedside. he was resting in bed pain controlled. Fluid studies showing gram-negative rods and gram-positive cocci in pleural fluid. We will escalate antibiotic and consult infectious diseases. Pulmonary consulted recommendations reviewed. Discussed with bedside RN. Continue current. 04/06 Patient evaluated examined at bedside after thoracentesis. C/o some pain around procedure site but breathing a bit improved. Fluid study results pending. Cont inue antibiotics. Pulmonary recommendations reviewed. Discussed with bedside RN., Vitals/I&O Vitals/I&O: Vital Signs Date Time Temp Pulse Resp B/P (MAP) Pulse Ox O2 Delivery O2 Flow Rate FiO2 04/08/22 16:19 99 Room Air 04/08/22 15:00 97.8 94 20 146/90 (108) 97.8 04/07/22 10:56 2.0 I & O 04/07/22 04/07/22 04/08/22 15:00 23:00 07:00 Intake Total 550 ml 1967 ml 800 ml Output Total 950 ml Balance 550 ml 1967 ml -150 ml Physical Exam General: Alert, Oriented X3, Cooperative Heart: Regular rate, Normal S1, Normal S2 Lungs: Other (Adequate airflow, somewhat decreased in the right lower lobe) Abdomen: Normal bowel sounds, Soft, No tenderness Extremities: No edema, Normal pulses Skin: No significant lesion Labs Labs: Laboratory Tests Test 04/08/22 06:16 04/08/22 13:39 Procalcitonin 0.38 ng/mL (0.00-0.10) Vancomycin Level Trough 15.1 mcg/mL (10.0-20.0) Vancomycin Last Dose Date 04/08/22 Vancomycin Last Dose Time 0600 Assessment and Plan Assessmemt and Plan Problems Medical Problems: (1) Fever Status: Acute (2) Pleural effusion Status: Acute (3) Right lower lobe pneumonia Status: Acute (4) SOB (shortness of breath) Status: Acute Comment Review of Relevant I have reviewed the following items tam (where applicable) has been applied. Medications: Current Medications Medications (Trade) Dose Ordered Sig/Evgeny Route PRN Reason Start Time Stop Time Status Last Admin Dose Admin Doxycycline Hyclate (Vibra-Tab) 100 mg BID PO 04/07/22 21:00 04/08/22 08:36 Vancomycin HCl 1.5 gm/Dextrose 500 ml @ 250 mls/hr Q8H IV 04/07/22 22:00 04/08/22 15:11 DC 04/08/22 14:46 Vancomycin HCl (Vancomycin Trough Level) 1 each 1X ONCE MC 04/08/22 13:30 04/08/22 13:31 DC 04/08/22 13:30 Guaifenesin/ Codeine Phosphate (Robitussin Ac) 5 ml PRN Q4HRS PRN PO COUGH 04/08/22 19:00 04/08/22 19:04 Justifications for Admission Other Justification DUSTIN WALTERS MD April 08, 2022 19:20
[2022-04-08 19:44] LABS: BASO % 1 % (0-3); EOS # 0.1 x10^3/uL (0.0-0.7); EOS % 2 % (0-3); HEMATOCRIT 32.4 % (39.0-53.0); HEMOGLOBIN 10.6 g/dL (13.0-17.5); LYMPH # 1.7 x10^3/uL (1.0-4.8); LYMPH % 26 % (24-48); MEAN CORPUSCULAR HEMOGLOBIN 28 pg (25-35); MEAN CORPUSCULAR HGB CONC 33 g/dL (31-37); MEAN CORPUSCULAR VOLUME 86 fL (79-100); MONO # 0.7 x10^3/uL (0.0-1.1); MONO % 10 % (0-9); NEUT # 4.1 x10^3/uL (1.8-7.7); NEUT % 62 % (31-73); PLATELET COUNT 396 x10^3/uL (140-400); RED BLOOD COUNT 3.77 x10^6/uL (4.30-5.70); RED CELL DISTRIBUTION WIDTH 13.8 % (11.5-14.5); WHITE BLOOD COUNT 6.7 x10^3/uL (4.0-11.0)
[2022-04-08] MEDS: methylPREDNISolone SOD SUCC PF 125 MG/2 ML VIAL. IV SCH (21:24)
[2022-04-08 23:00] VITALS: BP 151/90
[2022-04-09] VITALS (13 sets, daily range): BP systolic 100–143; BP diastolic 68–99
[2022-04-09] MEDS: PIPERACILLIN/TAZOBACTAM 3.375 GM in IV NORMAL SALINE 50ML 50 ML IV SCH (05:55)
--- NOTE | 2022-04-09 07:04 | CONS ---
DATE OF CONSULTATION: 04/08/2022 INFECTIOUS DISEASE CONSULTATION REFERRING PHYSICIAN: Dr. Landin. REASON FOR CONSULTATION: Strep intermedius empyema antibiotic management. HISTORY OF PRESENT ILLNESS: A 31-year-old male recently treated for pneumonia with Z-SWAPNIL and cefdinir, returned with shortness of breath, cough and fevers. His fever was 103. Chest x-ray revealed a large right pleural effusion. The patient underwent thoracocentesis. Cultures are growing Strep intermedius. The patient is currently on vancomycin and Zosyn. ID consultation has been requested for antibiotic management. Today, the patient feels better, less cough, less shortness of breath. Appetite is improving. He was started on clotrimazole troches for thrush. The patient denies any difficulty swallowing. PAST MEDICAL HISTORY: Basically healthy except for community-acquired pneumonia for which he was treated in the ED on 03/03/2022 with azithromycin and cefdinir. PAST SURGICAL HISTORY: None. CURRENT MEDICATIONS: IV vancomycin and Zosyn. Other medications reviewed in medication list. REVIEW OF SYSTEMS: Negative except for above in HPI. ALLERGIES: No known drug allergies. SOCIAL HISTORY: Denies alcohol, denies smoking or taking drugs. Works doing [employer], has a son and girlfriend. PHYSICAL EXAMINATION: VITAL SIGNS: Temperature 97.7, pulse 88, respiratory rate 20, blood pressure 142/89, oxygen saturation 94% on room air. GENERAL: Alert, oriented x 3 male, lying in bed comfortably, in no acute distress. HEENT: Normocephalic, atraumatic. Anicteric. No thrush. Oral mucosa moist. NECK: Supple, no lymphadenopathy. LUNGS: Decreased breath sound over the right lung and some over the left lung base. No wheezing. HEART: S1, S2. No murmurs. ABDOMEN: Soft, obese. Bowel sounds present, nontender, nondistended. EXTREMITIES: No edema, no cyanosis. DERMATOLOGIC: Warm, dry, no generalized rash. Multiple tattoos. NEUROLOGIC: Alert, oriented x 3, grossly nonfocal. PSYCHIATRIC: Calm and cooperative. LABORATORY DATA: WBC 7.5, hemoglobin 11.6, hematocrit 33.6, platelets 426. Sodium 129, potassium 3.9, chloride 94, bicarb 25, BUN 11, creatinine 0.9, glucose 203. Lactate 2.0, AST 49, ALT 42, alkaline phosphatase 119, albumin 1.9. Pleural fluid shows a pH of 5.11, nucleated cells of 805418, [place] [address]. SARS COVID rapid negative. IMAGING: Chest x-ray reviewed. CT chest reviewed. Repeat chest x-ray today shows redemonstration of opacification of majority of the right hemithorax with a small amount of aerated lungs seen superiorly could be secondary to pleural effusion or airspace consolidation. Micro: Blood culture on 04/05/2022 negative. Pleural fluid culture, Streptococcus intermedius. IMPRESSION: 1. Streptococcus intermedius empyema, status post thoracocentesis. 2. Extensive right lung pneumonia with complicated parapneumonic effusion. 3. Dyspnea secondary to above. 4. Fever secondary to above, resolved. 5. Hyponatremia. 6. Protein-calorie malnutrition. 7. Anemia. RECOMMENDATIONS: 1. Discontinue vancomycin. 2. Continue Zosyn for now. 3. We will modify treatment depending on further microbiology data. 4. Monitor labs and cultures. 5. Continue supportive care. 6. Maintain aspiration precaution. Thank you, Dr. Landin, for consulting Infectious Disease to participate in this patient's care. If you have any questions, do not hesitate to contact me. Discussed with nursing staff. LEVON/ALEKSANDER DR: Rebecca TID: [phone]
[2022-04-09] MEDS ORDERED: PANTOPRAZOLE IV PUSH 40 MG VIAL. IVP SCH (07:30)
[2022-04-09] MEDS: IPRATRPIUM/ALBUTEROL 0.5/2.5MG 3 ML NEBU. NEB SCH ×4 (08:02→19:58)
--- NOTE | 2022-04-09 08:16 | RAD ---
XR CHEST 1V History: Reason: empyema / Spl. Instructions: / History: Comparison: April 08, 2022 Findings: Moderate loculated right pleural effusion, unchanged. Bibasilar consolidations, unchanged. Unchanged heart size. No pneumothorax. Impression: 1. Stable appearance of the chest compared to prior. Electronically signed by: Sebastien Gonzalez DO (04/09/2022 8:14 AM) [id number]
[2022-04-09] MEDS: methylPREDNISolone SOD SUCC PF 125 MG/2 ML VIAL. IV SCH ×2 (09:01→21:27)
--- NOTE | 2022-04-09 09:04 | PDOC ---
PULMONARY PROGRESS NOTES DATE: 04/09/22 TIME: 09:04 Subjective Patient feels better, appetite is better less short of air Vitals Vital Signs Date Time Temp Pulse Resp B/P (MAP) Pulse Ox O2 Delivery O2 Flow Rate FiO2 04/09/22 08:02 96 Nasal Cannula 2.0 04/09/22 03:00 98.5 88 22 136/94 (108) 98.5 ROS: No Nausea, No Chest Pain, No Abdominal Pain, No Increase Cough General: Alert Lungs: Other (Adequate airflow, somewhat decreased in the right lower lobe) Cardiovascular: S1, S2 Abdomen: Soft, Non-tender Neuro Exam: Alert Extremities: No Edema Skin: Warm Labs Laboratory Tests Test 04/08/22 06:16 04/08/22 13:39 04/08/22 19:35 Procalcitonin 0.38 ng/mL (0.00-0.10) Vancomycin Level Trough 15.1 mcg/mL (10.0-20.0) Vancomycin Last Dose Date 04/08/22 Vancomycin Last Dose Time 0600 White Blood Count 6.7 x10^3/uL (4.0-11.0) Red Blood Count 3.77 x10^6/uL (4.30-5.70) Hemoglobin 10.6 g/dL (13.0-17.5) Hematocrit 32.4 % (39.0-53.0) Mean Corpuscular Volume 86 fL (79-100) Mean Corpuscular Hemoglobin 28 pg (25-35) Mean Corpuscular Hemoglobin Concent 33 g/dL (31-37) Red Cell Distribution Width 13.8 % (11.5-14.5) Platelet Count 396 x10^3/uL (140-400) Neutrophils (%) (Auto) 62 % (31-73) Lymphocytes (%) (Auto) 26 % (24-48) Monocytes (%) (Auto) 10 % (0-9) Eosinophils (%) (Auto) 2 % (0-3) Basophils (%) (Auto) 1 % (0-3) Neutrophils # (Auto) 4.1 x10^3/uL (1.8-7.7) Lymphocytes # (Auto) 1.7 x10^3/uL (1.0-4.8) Monocytes # (Auto) 0.7 x10^3/uL (0.0-1.1) Eosinophils # (Auto) 0.1 x10^3/uL (0.0-0.7) Basophils # (Auto) 0.0 x10^3/uL (0.0-0.2) Laboratory Tests Test 04/08/22 13:39 04/08/22 19:35 Vancomycin Level Trough 15.1 mcg/mL (10.0-20.0) Vancomycin Last Dose Date 04/08/22 Vancomycin Last Dose Time 0600 White Blood Count 6.7 x10^3/uL (4.0-11.0) Red Blood Count 3.77 x10^6/uL (4.30-5.70) Hemoglobin 10.6 g/dL (13.0-17.5) Hematocrit 32.4 % (39.0-53.0) Mean Corpuscular Volume 86 fL (79-100) Mean Corpuscular Hemoglobin 28 pg (25-35) Mean Corpuscular Hemoglobin Concent 33 g/dL (31-37) Red Cell Distribution Width 13.8 % (11.5-14.5) Platelet Count 396 x10^3/uL (140-400) Neutrophils (%) (Auto) 62 % (31-73) Lymphocytes (%) (Auto) 26 % (24-48) Monocytes (%) (Auto) 10 % (0-9) Eosinophils (%) (Auto) 2 % (0-3) Basophils (%) (Auto) 1 % (0-3) Neutrophils # (Auto) 4.1 x10^3/uL (1.8-7.7) Lymphocytes # (Auto) 1.7 x10^3/uL (1.0-4.8) Monocytes # (Auto) 0.7 x10^3/uL (0.0-1.1) Eosinophils # (Auto) 0.1 x10^3/uL (0.0-0.7) Basophils # (Auto) 0.0 x10^3/uL (0.0-0.2) Medications Active Scripts Medications Dose Route/Sig Max Daily Dose Days Date Category No Known Medications Prior To Admisstion (Info) Each 1 Each 1X 04/06/22 Reported Impression . IMPRESSION: 1. Progressive dyspnea secondary to pneumonia with complicated parapneumonic effusion. 2. Abnormal x-ray, compatible with a complicated parapneumonic effusion. 3. Fever secondary to above. 4. Sepsis. 5. Hyponatremia. 6. Empyema status post thoracentesis Plan . Updated 04/08 Chest x-ray reviewed, increasing pleural effusion Will check CT chest May require chest tube placement with tPA infusion Will consult IR Continue current support with antibiotics Updated 04/07 Status post thoracentesis purulent material discussed with interventional radiologist pH compatible with empyema Need to monitor closely, if fluid reaccumulate's may require chest tube drainage with tPA infusion into the chest tube Continue current antibiotics Gram-negative rods and gram-positive cocci in pleural fluid analysis, switch to Zosyn and vancomycin 04/06 PLAN: 1. Continue IV antibiotics. 2. Discussed with interventional radiologist, will proceed with thoracentesis. Risks, benefits and alternatives reviewed with the patient. He consented. 3. Sent pleural fluid for routine analysis. 4. Add DVT prophylaxis. 5. Nebulized treatments. I do appreciate the privilege in sharing in the patient's care. ALBA CHE MD April 09, 2022 09:04
--- NOTE | 2022-04-09 09:48 | PDOC2 ---
GI CONSULT Date of Service: DATE: 04/09/22 TIME: 09:46 Reason For Consult: bloody emesis HPI: HPI: 31 y/o [place]-speaking male, translation help from nurse Arina. Recent pneumonia, re-admitted w/ empyema s/p thoracentesis. We're asked to see for concerns of bloody emesis, however, pt and nursing report coughing up bloody sputum but no vomiting or GI-type bleeding. Ate breakfast without issue this morning though now NPO for chest tube. Denies chronic GI issues including reflux/heartburn, dysphagia, n/v, diarrhea, hematochezia, melena, change in appetite, or weight loss. Stooling less frequently than normal. Also might have had a few right-sided pains once that quickly resolved. No previous EGD or colonoscopy. No GB, liver, pancreas, or PUD history. No NSAIDs regularly - takes Tylenol PRN for pain. PMH: PMH: per HPI FH: Family History: No pertinent hx (denies GI cancers), DM Social History: Smoke: No ALCOHOL: none ROS: GEN: +fever HEENT: Denies blurred vision, sore throat CV: Denies chest pain RESP: +SOA GI: Per HPI : Denies hematuria, dysuria ENDO: Denies weight changes NEURO: Denies confusion, dizziness MSK: Denies weakness, joint pain/swelling SKIN: Denies jaundice, pruritus Vitals: Vitals: Vital Signs Date Time Temp Pulse Resp B/P (MAP) Pulse Ox O2 Delivery O2 Flow Rate FiO2 04/09/22 08:02 96 Nasal Cannula 2.0 04/09/22 07:00 98.3 77 18 143/99 (114) 98.3 Labs: Labs: Laboratory Tests Test 04/08/22 13:39 04/08/22 19:35 Vancomycin Level Trough 15.1 mcg/mL (10.0-20.0) Vancomycin Last Dose Date 04/08/22 Vancomycin Last Dose Time 0600 White Blood Count 6.7 x10^3/uL (4.0-11.0) Red Blood Count 3.77 x10^6/uL (4.30-5.70) Hemoglobin 10.6 g/dL (13.0-17.5) Hematocrit 32.4 % (39.0-53.0) Mean Corpuscular Volume 86 fL (79-100) Mean Corpuscular Hemoglobin 28 pg (25-35) Mean Corpuscular Hemoglobin Concent 33 g/dL (31-37) Red Cell Distribution Width 13.8 % (11.5-14.5) Platelet Count 396 x10^3/uL (140-400) Neutrophils (%) (Auto) 62 % (31-73) Lymphocytes (%) (Auto) 26 % (24-48) Monocytes (%) (Auto) 10 % (0-9) Eosinophils (%) (Auto) 2 % (0-3) Basophils (%) (Auto) 1 % (0-3) Neutrophils # (Auto) 4.1 x10^3/uL (1.8-7.7) Lymphocytes # (Auto) 1.7 x10^3/uL (1.0-4.8) Monocytes # (Auto) 0.7 x10^3/uL (0.0-1.1) Eosinophils # (Auto) 0.1 x10^3/uL (0.0-0.7) Basophils # (Auto) 0.0 x10^3/uL (0.0-0.2) Allergies: Coded Allergies: No Known Drug Allergies (Unverified , 03/03/22) Medications: Current Medications Medications (Trade) Dose Ordered Sig/Evgeny Route PRN Reason Start Time Stop Time Status Last Admin Dose Admin Vancomycin HCl (Vancomycin Trough Level) 1 each 1X ONCE 04/08/22 13:30 04/08/22 13:31 DC 04/08/22 13:30 Guaifenesin/ Codeine Phosphate (Robitussin Ac) 5 ml PRN Q4HRS PRN PO COUGH 04/08/22 19:00 04/08/22 19:04 Methylprednisolone Sodium Succinate (SOLU-Medrol 125MG VIAL) 125 mg Q12HR IV 04/08/22 21:00 04/09/22 09:01 Pantoprazole Sodium (PROTONIX VIAL for IV PUSH) 40 mg 1X ONCE IVP 04/08/22 19:00 04/08/22 19:02 DC 04/08/22 21:24 Pantoprazole Sodium (PROTONIX VIAL for IV PUSH) 40 mg DAILYAC IVP 04/09/22 07:30 04/09/22 09:01 Imaging: Imaging: CXR 04/05 Impression: 1. Increasing now large right pleural effusion. Adjacent opacity may represent compressive atelectasis however infection and mass are not excluded. Thoracentesis 04/06 Impression: Right ultrasound-guided thoracentesis, 500 cc of purulent fluid was removed. Chest CT 04/08 IMPRESSION: Moderate to large empyema in the posterior right hemithorax with likely nondependent air in the collection secondary to interval thoracentesis. Extensive patchy and confluent opacities throughout the right lung, likely a combination of pneumonia and atelectasis. Recommend continued follow-up to resolution. CXR 04/08 IMPRESSION: * Redemonstration of opacification of majority of the right hemithorax with a small amount of aerated lung seen superiorly. Could be secondary to pleural effusion and airspace consolidation. CXR 04/09 Impression: 1. Stable appearance of the chest compared to prior. PE: GEN: NAD HEENT: Atraumatic, PERRL LUNGS: diminished HEART: RRR ABD: NABS, S/ND/NT EXTREMITY: No edema SKIN: No rashes, no jaundice NEURO/PSYCH: A & O 3 A/P: A/P: Empyema - s/p thoracentesis, plans for chest tube Hemoptysis Mild anemia Rapid COVID negative -- Pt and staff report hemoptysis - no hematemesis. Appreciate translation help from nursing. Observe from GI standpoint. Okay to continue PPI - change to PO since eating regular diet. CHRISTIAN BRAXTON April 09, 2022 09:48
--- NOTE | 2022-04-09 10:45 | NUR ---
PATIENT LEAVES THE UNIT PER BED FOR CHEST TUBE PLACEMENT, FAMILY MEMBERS AT THE BEDSIDE, EMOTIONAL SUPPORT GIVEN.
[2022-04-09] MEDS ORDERED: ALTEPLASE INT CAT ONE (11:15)
[2022-04-09] MEDS ORDERED: NORMAL SALINE INT CAT ONE (11:15)
[2022-04-09] MEDS ORDERED: fentaNYL PF VIAL 100 MCG/2 ML VIAL ONE (11:32)
[2022-04-09] MEDS ORDERED: MIDAZOLAM HCL/PF 2 MG/2 ML VIAL. ONE (11:32)
[2022-04-09] MEDS ORDERED: FLUMAZENIL 0.5 MG/5 ML VIAL. IV ONE (11:34)
[2022-04-09] MEDS ORDERED: fentaNYL PF VIAL 100 MCG/2 ML VIAL IVP ONE (12:15)
--- NOTE | 2022-04-09 12:49 | PDOC ---
Infectious Disease Note Subjective Subjective pt is feeling good ROS ROS no n/v/d/sob Vital Sign Vital Signs Vital Signs Date Time Temp Pulse Resp B/P (MAP) Pulse Ox O2 Delivery O2 Flow Rate FiO2 04/09/22 12:29 96 Nasal Cannula 4.0 04/09/22 12:20 88 30 115/74 (88) 04/09/22 07:00 98.3 98.3 Physical Exam PHYSICAL EXAM PHYSICAL EXAMINATION: VITAL SIGNS: stable GENERAL: Alert, oriented x 3 male, lying in bed comfortably, in no acute distress. HEENT: Normocephalic, atraumatic. Anicteric. No thrush. Oral mucosa moist. NECK: Supple, no lymphadenopathy. LUNGS: Decreased breath sound over the right lung and some over the left lung base. No wheezing. HEART: S1, S2. No murmurs. ABDOMEN: Soft, obese. Bowel sounds present, nontender, nondistended. EXTREMITIES: No edema, no cyanosis. DERMATOLOGIC: Warm, dry, no generalized rash. Multiple tattoos. NEUROLOGIC: Alert, oriented x 3, grossly nonfocal. PSYCHIATRIC: Calm and cooperative. Labs Lab Laboratory Tests Test 04/08/22 13:39 04/08/22 19:35 Vancomycin Level Trough 15.1 mcg/mL (10.0-20.0) Vancomycin Last Dose Date 04/08/22 Vancomycin Last Dose Time 0600 White Blood Count 6.7 x10^3/uL (4.0-11.0) Red Blood Count 3.77 x10^6/uL (4.30-5.70) Hemoglobin 10.6 g/dL (13.0-17.5) Hematocrit 32.4 % (39.0-53.0) Mean Corpuscular Volume 86 fL (79-100) Mean Corpuscular Hemoglobin 28 pg (25-35) Mean Corpuscular Hemoglobin Concent 33 g/dL (31-37) Red Cell Distribution Width 13.8 % (11.5-14.5) Platelet Count 396 x10^3/uL (140-400) Neutrophils (%) (Auto) 62 % (31-73) Lymphocytes (%) (Auto) 26 % (24-48) Monocytes (%) (Auto) 10 % (0-9) Eosinophils (%) (Auto) 2 % (0-3) Basophils (%) (Auto) 1 % (0-3) Neutrophils # (Auto) 4.1 x10^3/uL (1.8-7.7) Lymphocytes # (Auto) 1.7 x10^3/uL (1.0-4.8) Monocytes # (Auto) 0.7 x10^3/uL (0.0-1.1) Eosinophils # (Auto) 0.1 x10^3/uL (0.0-0.7) Basophils # (Auto) 0.0 x10^3/uL (0.0-0.2) Micro Microbiology 04/06/22 Gram Stain - Final, Resulted 04/06/22 Aerobic and Anaerobic Culture - Preliminary, Resulted Streptococcus Intermedius 04/05/22 Blood Culture - Preliminary, Resulted NO GROWTH AFTER 3 DAYS Objective Assessment IMPRESSION: 1. Streptococcus intermedius empyema, status post thoracocentesis. 2. Extensive right lung pneumonia with complicated parapneumonic effusion. 3. Dyspnea secondary to above. 4. Fever secondary to above, resolved. 5. Hyponatremia. 6. Protein-calorie malnutrition. 7. Anemia. Plan Plan of Care change antibiotics to rocephine cont supportive care RADHA MANDUJANO MD April 09, 2022 12:49
--- NOTE | 2022-04-09 13:15 | NUR ---
CHEST TUBE UNCLAMPED AT THIS TIME AND CONNECTED TO WALL SUCTION -20CM, RED ([place] COLORED) SECRETIONS NOTICED COLLECTING IN THE TUBING, PATIENT DENIES PAIN/DISCOMFORT AT THIS TIME, WILL MONITOR.
--- NOTE | 2022-04-09 13:28 | NUR ---
SS following for discharge planning. SS reviewed pt chart and discussed with pt RN. Pt is from home and is currently requiring oxygen at four liters nasal canula. COVID19 negative. GI, ID, and Pulmonology following. Chest tube being placed today. Pt on IV Solu-Medrol and IV Rocephin. Self pay. [employer] following. SS will continue to follow for discharge planning.
--- NOTE | 2022-04-09 14:22 | PDOC ---
PULMONARY PROGRESS NOTES DATE: 04/09/22 TIME: 14:20 Subjective Appetite today is not the best, not more short of air Vitals Vital Signs Date Time Temp Pulse Resp B/P (MAP) Pulse Ox O2 Delivery O2 Flow Rate FiO2 04/09/22 12:29 96 Nasal Cannula 4.0 04/09/22 12:20 88 30 115/74 (88) 04/09/22 07:00 98.3 98.3 ROS: No Nausea, No Chest Pain, No Abdominal Pain, No Increase Cough General: Alert Lungs: Other (Adequate airflow, somewhat decreased in the right lower lobe) Cardiovascular: S1, S2 Abdomen: Soft, Non-tender Neuro Exam: Alert Extremities: No Edema Skin: Warm Labs Laboratory Tests Test 04/08/22 06:16 04/08/22 13:39 04/08/22 19:35 Procalcitonin 0.38 ng/mL (0.00-0.10) Vancomycin Level Trough 15.1 mcg/mL (10.0-20.0) Vancomycin Last Dose Date 04/08/22 Vancomycin Last Dose Time 0600 White Blood Count 6.7 x10^3/uL (4.0-11.0) Red Blood Count 3.77 x10^6/uL (4.30-5.70) Hemoglobin 10.6 g/dL (13.0-17.5) Hematocrit 32.4 % (39.0-53.0) Mean Corpuscular Volume 86 fL (79-100) Mean Corpuscular Hemoglobin 28 pg (25-35) Mean Corpuscular Hemoglobin Concent 33 g/dL (31-37) Red Cell Distribution Width 13.8 % (11.5-14.5) Platelet Count 396 x10^3/uL (140-400) Neutrophils (%) (Auto) 62 % (31-73) Lymphocytes (%) (Auto) 26 % (24-48) Monocytes (%) (Auto) 10 % (0-9) Eosinophils (%) (Auto) 2 % (0-3) Basophils (%) (Auto) 1 % (0-3) Neutrophils # (Auto) 4.1 x10^3/uL (1.8-7.7) Lymphocytes # (Auto) 1.7 x10^3/uL (1.0-4.8) Monocytes # (Auto) 0.7 x10^3/uL (0.0-1.1) Eosinophils # (Auto) 0.1 x10^3/uL (0.0-0.7) Basophils # (Auto) 0.0 x10^3/uL (0.0-0.2) Laboratory Tests Test 04/08/22 19:35 White Blood Count 6.7 x10^3/uL (4.0-11.0) Red Blood Count 3.77 x10^6/uL (4.30-5.70) Hemoglobin 10.6 g/dL (13.0-17.5) Hematocrit 32.4 % (39.0-53.0) Mean Corpuscular Volume 86 fL (79-100) Mean Corpuscular Hemoglobin 28 pg (25-35) Mean Corpuscular Hemoglobin Concent 33 g/dL (31-37) Red Cell Distribution Width 13.8 % (11.5-14.5) Platelet Count 396 x10^3/uL (140-400) Neutrophils (%) (Auto) 62 % (31-73) Lymphocytes (%) (Auto) 26 % (24-48) Monocytes (%) (Auto) 10 % (0-9) Eosinophils (%) (Auto) 2 % (0-3) Basophils (%) (Auto) 1 % (0-3) Neutrophils # (Auto) 4.1 x10^3/uL (1.8-7.7) Lymphocytes # (Auto) 1.7 x10^3/uL (1.0-4.8) Monocytes # (Auto) 0.7 x10^3/uL (0.0-1.1) Eosinophils # (Auto) 0.1 x10^3/uL (0.0-0.7) Basophils # (Auto) 0.0 x10^3/uL (0.0-0.2) Medications Active Scripts Medications Dose Route/Sig Max Daily Dose Days Date Category No Known Medications Prior To Admisstion (Info) Each 1 Each 1X 04/06/22 Reported Impression . IMPRESSION: 1. Progressive dyspnea secondary to pneumonia with complicated parapneumonic effusion. 2. Abnormal x-ray, compatible with a complicated parapneumonic effusion. 3. Fever secondary to above. 4. Sepsis. 5. Hyponatremia. 6. Empyema status post thoracentesis Plan . Updated 04/09 Chest tube placed, infuse tPA Discussed with Dr. Roman Continue current empiric antibiotics Monitor response to tPA Updated 04/08 Chest x-ray reviewed, increasing pleural effusion Will check CT chest May require chest tube placement with tPA infusion Will consult IR Continue current support with antibiotics Updated 04/07 Status post thoracentesis purulent material discussed with interventional radiologist pH compatible with empyema Need to monitor closely, if fluid reaccumulate's may require chest tube drainage with tPA infusion into the chest tube Continue current antibiotics Gram-negative rods and gram-positive cocci in pleural fluid analysis, switch to Zosyn and vancomycin 04/06 PLAN: 1. Continue IV antibiotics. 2. Discussed with interventional radiologist, will proceed with thoracentesis. Risks, benefits and alternatives reviewed with the patient. He consented. 3. Sent pleural fluid for routine analysis. 4. Add DVT prophylaxis. 5. Nebulized treatments. I do appreciate the privilege in sharing in the patient's care. ALBA CHE MD April 09, 2022 14:21
[2022-04-09] MEDS: LACTOBACILLUS RHAMNOSUS GG 1 CAPSULE. PO SCH ×2 (15:25→21:27)
[2022-04-09] MEDS: ENOXAPARIN 40 MG/0.4 ML SYRINGE. SQ SCH (15:26)
[2022-04-09] MEDS: cefTRIAXone IV Push 2 GM VIAL. IVP SCH (15:27)
--- NOTE | 2022-04-09 16:27 | PDOC ---
[employer] PROGRESS NOTE Date of Service DOS: DATE: 04/09/22 TIME: 16:25 Chief Complaint Chief Complaint Large right pleural effusion after recent pneumonia. The patient will be admitted. We will start IV antibiotics, breathing treatments, oxygen. Consult Pulmonary. Consult Interventional Radiology to consider thoracentesis--> performed 04/06 500cc removed . Trend labs. Home meds. Deep venous thrombosis prophylaxis. Full code. Consult infectious disease History of Present Illness History of Present Illness 04/09: Afebrile. Chest tube is in place draining serosanguineous fluid. Continue on IV antibiotics, per ID. Continue empiric PPI. 04/08 Patient evaluated examined at bedside. This morning he was resting in bed without complaint. Reevaluated patient in the evening and he was having profuse blood-tinged vomiting. Reported to me he was feeling terrible but no residential nurse used when i saw him; he did appear to be in quite a bit of distress. Pulm orders/recommendations reviewed. Given bloody vomitus start IV Protonix and GI consult; suspect hematemesis is secondary to respiratory infection but Protonix and GI consult for completeness sake. Discussed with bedside RN. 04/07 Evaluated examined at bedside. he was resting in bed pain controlled. Fluid studies showing gram-negative rods and gram-positive cocci in pleural fluid. We will escalate antibiotic and consult infectious diseases. Pulmonary consulted recommendations reviewed. Discussed with bedside RN. Continue current. 04/06 Patient evaluated examined at bedside after thoracentesis. C/o some pain around procedure site but breathing a bit improved. Fluid study results pending. Continue antibiotics. Pulmonary recommendations reviewed. Discussed with bedside RN., Vitals/I&O Vitals/I&O: Vital Signs Date Time Temp Pulse Resp B/P (MAP) Pulse Ox O2 Delivery O2 Flow Rate FiO2 04/09/22 16:13 94 Nasal Cannula 2.0 04/09/22 15:00 98.3 91 20 135/83 (100) 98.3 I & O 04/08/22 04/08/22 04/09/22 15:00 23:00 07:00 Intake Total 50 ml 2275 ml Output Total 1300 ml 900 ml 1200 ml Balance -1250 ml 1375 ml -1200 ml Physical Exam Physical Exam: PHYSICAL EXAMINATION: VITAL SIGNS: stable GENERAL: Alert, oriented x 3 male, lying in bed comfortably, in no acute distress. HEENT: Normocephalic, atraumatic. Anicteric. No thrush. Oral mucosa moist. NECK: Supple, no lymphadenopathy. LUNGS: Decreased breath sound over the right lung and some over the left lung base. No wheezing. HEART: S1, S2. No murmurs. ABDOMEN: Soft, obese. Bowel sounds present, nontender, nondistended. EXTREMITIES: No edema, no cyanosis. DERMATOLOGIC: Warm, dry, no generalized rash. Multiple tattoos. NEUROLOGIC: Alert, oriented x 3, grossly nonfocal. PSYCHIATRIC: Calm and cooperative. General: Alert, Oriented X3, Cooperative Heart: Regular rate, Normal S1, Normal S2 Lungs: Other (Adequate airflow, somewhat decreased in the right lower lobe) Abdomen: Normal bowel sounds, Soft, No tenderness Extremities: No edema, Normal pulses Skin: No significant lesion Labs Labs: Laboratory Tests Test 04/08/22 19:35 04/09/22 14:07 White Blood Count 6.7 x10^3/uL (4.0-11.0) Red Blood Count 3.77 x10^6/uL (4.30-5.70) Hemoglobin 10.6 g/dL (13.0-17.5) Hematocrit 32.4 % (39.0-53.0) Mean Corpuscular Volume 86 fL (79-100) Mean Corpuscular Hemoglobin 28 pg (25-35) Mean Corpuscular Hemoglobin Concent 33 g/dL (31-37) Red Cell Distribution Width 13.8 % (11.5-14.5) Platelet Count 396 x10^3/uL (140-400) Neutrophils (%) (Auto) 62 % (31-73) Lymphocytes (%) (Auto) 26 % (24-48) Monocytes (%) (Auto) 10 % (0-9) Eosinophils (%) (Auto) 2 % (0-3) Basophils (%) (Auto) 1 % (0-3) Neutrophils # (Auto) 4.1 x10^3/uL (1.8-7.7) Lymphocytes # (Auto) 1.7 x10^3/uL (1.0-4.8) Monocytes # (Auto) 0.7 x10^3/uL (0.0-1.1) Eosinophils # (Auto) 0.1 x10^3/uL (0.0-0.7) Basophils # (Auto) 0.0 x10^3/uL (0.0-0.2) Iron Level 53 ug/dL (65-175) Total Iron Binding Capacity 139 ug/dL (250-450) Iron Saturation 38 % (15-34) Assessment and Plan Assessmemt and Plan Problems Medical Problems: (1) Fever Status: Acute (2) Pleural effusion Status: Acute (3) Right lower lobe pneumonia Status: Acute (4) SOB (shortness of breath) Status: Acute Comment Review of Relevant I have reviewed the following items tam (where applicable) has been applied. Medications: Current Medications Medications (Trade) Dose Ordered Sig/Evgeny Route PRN Reason Start Time Stop Time Status Last Admin Dose Admin Guaifenesin/ Codeine Phosphate (Robitussin Ac) 5 ml PRN Q4HRS PRN PO COUGH 04/08/22 19:00 04/08/22 19:04 Methylprednisolone Sodium Succinate (SOLU-Medrol 125MG VIAL) 125 mg Q12HR IV 04/08/22 21:00 04/09/22 09:01 Pantoprazole Sodium (PROTONIX VIAL for IV PUSH) 40 mg 1X ONCE IVP 04/08/22 19:00 04/08/22 19:02 DC 04/08/22 21:24 Pantoprazole Sodium (PROTONIX VIAL for IV PUSH) 40 mg DAILYAC IVP 04/09/22 07:30 04/09/22 09:48 DC 04/09/22 09:01 Alteplase, Recombinant 10 mg/ Sodium Chloride 60 ml @ 60 mls/hr 1X ONCE INT CAT 04/09/22 11:15 04/09/22 12:14 DC 04/09/22 11:15 Fentanyl Citrate (Fentanyl 2ml Vial) 100 mcg 1X ONCE IVP 04/09/22 12:15 04/09/22 12:16 DC 04/09/22 12:04 Ceftriaxone Sodium (Rocephin) 2 gm Q24H IVP 04/09/22 13:00 04/09/22 15:27 Justifications for Admission Other Justification MERCEDEZ JAMES MD April 09, 2022 16:26
--- NOTE | 2022-04-09 17:08 | PATHOLOGY ---
Note [facility] Accession Number: [id number] TESTS RESULT FLAG UNITS REF RANGE LAB Clinician Provided Cytology Information No. of containers..01 Other (Miscellaneous) Source: RT PLEURAL FL DIAGNOSIS: RT PLEURAL FL NEGATIVE FOR MALIGNANT CELLS. NUMEROUS ACUTE INFLAMMATORY CELLS PRESENT. THIS EVALUATION INCLUDES EXAMINATION OF A CELL BLOCK. Signed out by: 02 Reg Vasquez MD, Pathologist NPI- [id number] Performed by: Clementina Mcnair Optimization Specialist ([facility]) Gross description: 01 28ML, LESLY DODD /CARIN 04/07/2022 1733 Local FLAG LEGEND: L-Low Normal,H-High Normal,LL-Alert Low,HH-Alert High <-Panic Low,>-Panic High,A-Abnormal,AA-Critical Abnormal Performed at: [address] [address] Serge Zamora MD, 02 [facility] [address] [place] [address] Reg Vasquez MD, Specimen Comment: A courtesy copy of this report has been sent to [phone] Specimen Comment: Report sent to Specimen Comment: A duplicate report has been generated due to demographic updates. Performed at: [address], [place], [place] [id number] MD Serge Zamora MD Phone: [phone]
[2022-04-09] MEDS: IV NORMAL SALINE 1000ML BAG 1,000 ML IV SCH (18:20)
[2022-04-09] MEDS ORDERED: MORPHINE SULFATE 2 MG/ML INJ. IVP PRN (23:15)
[2022-04-10 03:22] VITALS: BP 140/92
[2022-04-10 07:00] VITALS: BP 145/95
--- NOTE | 2022-04-10 08:16 | RAD ---
XR CHEST 1V History: Reason: empyema / Spl. Instructions: / History: Comparison: April 09, 2022 Findings: Interval placement small caliber pigtail pleural drain. Decreased right empyema. Persistent patchy ri ght mid and basilar opacities. Normal heart size. No dependently layering pneumothorax. Impression: 1. Interval placement right small-caliber pigtail pleural drain. Decreased right empyema. 2. Persistent right mid and basilar patchy opacities. Electronically signed by: Sebastien Gonzalez DO (04/10/2022 8:13 AM) [id number]
[2022-04-10] MEDS: IPRATRPIUM/ALBUTEROL 0.5/2.5MG 3 ML NEBU. NEB SCH ×4 (08:18→20:50)
[2022-04-10] MEDS: methylPREDNISolone SOD SUCC PF 125 MG/2 ML VIAL. IV SCH (09:08)
[2022-04-10] MEDS: PANTOPRAZOLE 40 MG TABLET.DR. PO SCH (09:08)
[2022-04-10] MEDS: LACTOBACILLUS RHAMNOSUS GG 1 CAPSULE. PO SCH ×2 (09:08→21:38)
[2022-04-10 11:00] VITALS: BP 138/87
--- NOTE | 2022-04-10 11:35 | PDOC ---
PULMONARY PROGRESS NOTES DATE: 04/10/22 TIME: 11:32 Subjective Appetite today is not the best, not more short of air Vitals Vital Signs Date Time Temp Pulse Resp B/P (MAP) Pulse Ox O2 Delivery O2 Flow Rate FiO2 04/10/22 08:21 96 Nasal Cannula 2.0 04/10/22 07:00 98.4 93 24 145/95 (112) 98.4 ROS: No Nausea, No Chest Pain, No Abdominal Pain, No Increase Cough General: Alert Lungs: Other (Adequate airflow, somewhat decreased in the right lower lobe) Cardiovascular: S1, S2 Abdomen: Soft, Non-tender Neuro Exam: Alert Extremities: No Edema Skin: Warm Labs Laboratory Tests Test 04/08/22 13:39 04/08/22 19:35 04/09/22 14:07 Vancomycin Level Trough 15.1 mcg/mL (10.0-20.0) Vancomycin Last Dose Date 04/08/22 Vancomycin Last Dose Time 0600 White Blood Count 6.7 x10^3/uL (4.0-11.0) Red Blood Count 3.77 x10^6/uL (4.30-5.70) Hemoglobin 10.6 g/dL (13.0-17.5) Hematocrit 32.4 % (39.0-53.0) Mean Corpuscular Volume 86 fL (79-100) Mean Corpuscular Hemoglobin 28 pg (25-35) Mean Corpuscular Hemoglobin Concent 33 g/dL (31-37) Red Cell Distribution Width 13.8 % (11.5-14.5) Platelet Count 396 x10^3/uL (140-400) Neutrophils (%) (Auto) 62 % (31-73) Lymphocytes (%) (Auto) 26 % (24-48) Monocytes (%) (Auto) 10 % (0-9) Eosinophils (%) (Auto) 2 % (0-3) Basophils (%) (Auto) 1 % (0-3) Neutrophils # (Auto) 4.1 x10^3/uL (1.8-7.7) Lymphocytes # (Auto) 1.7 x10^3/uL (1.0-4.8) Monocytes # (Auto) 0.7 x10^3/uL (0.0-1.1) Eosinophils # (Auto) 0.1 x10^3/uL (0.0-0.7) Basophils # (Auto) 0.0 x10^3/uL (0.0-0.2) Iron Level 53 ug/dL (65-175) Total Iron Binding Capacity 139 ug/dL (250-450) Iron Saturation 38 % (15-34) Laboratory Tests Test 04/09/22 14:07 Iron Level 53 ug/dL (65-175) Total Iron Binding Capacity 139 ug/dL (250-450) Iron Saturation 38 % (15-34) Medications Active Scripts Medications Dose Route/Sig Max Daily Dose Days Date Category No Known Medications Prior To Admisstion (Info) Each 1 Each 1X 04/06/22 Reported Comments Chest x-ray reviewed 04/10/2022. Mild improved aeration right lower lobe. Impression . IMPRESSION: 1. Progressive dyspnea secondary to pneumonia with complicated parapneumonic effusion. 2. Abnormal x-ray, compatible with a complicated parapneumonic effusion./Empyema. 3. Fever secondary to above. 4. Sepsis. 5. Hyponatremia. 6. Empyema status post thoracentesis Plan . Chest tube placed, status post tPA. Mild improved aeration right lower lobe. Continue current empiric antibiotics Monitor response to tPA, 140 cc of fluid came out since tPA Pleural fluid cultures consistent with Streptococcus intermedius. Await sensitivities. ID consult appreciated. Follow recommendations. Taper off steroids. RADHA ACOSTA MD April 10, 2022 11:35
--- NOTE | 2022-04-10 11:48 | RAD ---
CT-guided, right thoracostomy tube placement 04/09/2022 Indication: Empyema COMPARISON STUDY: Chest radiograph earlier same day Consent: The procedure was explained in its entirety to the patient or the patients designated repres entative by a member of the treatment team, including a discussion of the risks, benefits and commonl y accepted alternatives to the procedure, as well as the expected consequences of no therapy whatsoev er. Discussion of the risks included, but was not limited to, those that are most frequent and thos e that are rare but possibly severe or life-threatening, as well as the possibility of unforeseen com plications. Procedural detail: The patient was placed in the left lateral decubitus position. 1% lidocaine was ad ministered for local anesthesia. Under intermittent CT guidance a needle was advanced into the pleura l space. A guidewire was advanced into the pleural space over which following dilatation a 14 Icelandic pigtail tube was placed. Purulent material was aspirated. Air fluid was aspirated, an expected fashio n. 10 mg of TPA was administered. The catheter was secured in place. Sterile dressings were applied. No immediate complications. IMPRESSION: CT-guided right thoracostomy tube placement CT DOSING PQRS STATEMENT: One or more of the following individualized dose reduction techniques were utilized for this examinat ion: 1. Automated exposure control 2. Adjustment of the mA and/or kV according to patient size 3. Use of iterative reconstruction technique Electronically signed by: Todd Daily MD (04/10/2022 11:45 AM) [id number]
--- NOTE | 2022-04-10 11:53 | PDOC ---
Date of Service: DATE: 04/10/22 TIME: 11:49 Subjective: Subjective: Having breathing treatment - indicates no GI complaints. Objective: Objective: Stool charted yesterday. Vital Signs: Vital Signs Date Time Temp Pulse Resp B/P (MAP) Pulse Ox O2 Delivery O2 Flow Rate FiO2 04/10/22 11:44 Nasal Cannula 2.0 04/10/22 08:21 96 04/10/22 07:00 98.4 93 24 145/95 (112) 98.4 Labs: Laboratory Tests Test 04/09/22 14:07 Iron Level 53 ug/dL Total Iron Binding Capacity 139 ug/dL Iron Saturation 38 % GRAM STAIN-AER ROXANNE Final PMNS (WBCS): MANY GRAM NEGATIVE RODS: MANY GRAM POS COCCI CHAINS MANY CULTURE ANAEROBIC/AEROBIC Preliminary MANY STREPTOCOCCUS INTERMEDIUS on 04/07/22 at 1546. GRAM STAIN RESULTS CALLED TO [facility] on 04/07/22 at 0918. Testing performed by [address] [address] director community health nursing: Yari Mendoza MD Imaging: CXR 04/10 Impression: 1. Interval placement right small-caliber pigtail pleural drain. Decreased right empyema. 2. Persistent right mid and basilar patchy opacities. PE: GEN: NAD LUNGS: breathing treatment, RT present, chest tube w/ bloody output HEART: RRR ABD: S/ND/NT NEURO/PSYCH: A & O 3 A/P: Empyema s/p chest tube - pleural fluid results as above Mild anemia - iron profile as above, no obvious GI bleeding -- Continue PPI, observe GI-martinez. Justicifation of Admission Dx: Justifications for Admission: Justification of Admission Dx: Yes CHRISTIAN BRAXTON April 10, 2022 11:53
[2022-04-10] MEDS: ENOXAPARIN 40 MG/0.4 ML SYRINGE. SQ SCH (12:12)
--- NOTE | 2022-04-10 12:20 | PDOC ---
[facility] PROGRESS NOTE Date of Service DOS: DATE: 04/10/22 TIME: 12:15 Chief Complaint Chief Complaint Large right pleural effusion after recent pneumonia. The patient will be admitted. We will start IV antibiotics, breathing treatments, oxygen. Consult Pulmonary. Consult Interventional Radiology to consider thoracentesis--> performed 04/06 500cc removed . Trend labs. Home meds. Deep venous thrombosis prophylaxis. Full code. Consult infectious disease History of Present Illness History of Present Illness 04/10: Patient seen and evaluated. He denies any fever or worsening shortness of breath. Chest tube placed, s/p tPA. Continue treatment with Rocephin 2 g daily. Pleural fluid growing Streptococcus intermedius; sensitivities pending. Discussed with Dr. Sharpe, will continue chest tube for few more days. 04/09: Afebrile. Chest tube is in place draining serosanguineous fluid. Atilio nue on IV antibiotics, per ID. Continue empiric PPI. 04/08 Patient evaluated examined at bedside. This morning he was resting in bed without complaint. Reevaluated patient in the evening and he was having profuse blood-tinged vomiting. 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 Pulm orders/recommendations reviewed. Given bloody vomitus start IV Protonix and GI consult; suspect hematemesis is secondary to respiratory infection but Protonix and GI consult for completeness sake. Discussed with bedside RN. 04/07 Evaluated examined at bedside. he was resting in bed pain controlled. Fluid studies showing gram-negative rods and gram-positive cocci in pleural fluid. We will escalate antibiotic and consult infectious diseases. Pulmonary consulted recommendations reviewed. Discussed with bedside RN. Continue current. 04/06 Patient evaluated examined at bedside after thoracentesis. C/o some pain around procedure site but breathing a bit improved. Fluid study results pending. Continue antibiotics. Pulmonary recommendations reviewed. Discussed with bedside RN., Vitals/I&O Vitals/I&O: Vital Signs Date Time Temp Pulse Resp B/P (MAP) Pulse Ox O2 Delivery O2 Flow Rate FiO2 04/10/22 11:44 Nasal Cannula 2.0 04/10/22 08:21 96 04/10/22 07:00 98.4 93 24 145/95 (112) 98.4 I & O 04/09/22 04/09/22 04/10/22 15:00 23:00 07:00 Intake Total 200 ml 0 ml 740 ml Output Total 700 ml 420 ml 1380 ml Balance -500 ml -420 ml -640 ml Physical Exam Physical Exam: PHYSICAL EXAMINATION: VITAL SIGNS: stable GENERAL: Alert, oriented x 3 male, lying in bed comfortably, in no acute distress. HEENT: Normocephalic, atraumatic. Anicteric. No thrush. Oral mucosa moist. NECK: Supple, no lymphadenopathy. LUNGS: Decreased breath sound over the right lung and some over the left lung base. No wheezing. HEART: S1, S2. No murmurs. ABDOMEN: Soft, obese. Bowel sounds present, nontender, nondistended. EXTREMITIES: No edema, no cyanosis. DERMATOLOGIC: Warm, dry, no generalized rash. Multiple tattoos. NEUROLOGIC: Alert, oriented x 3, grossly nonfocal. PSYCHIATRIC: Calm and cooperative. General: Alert, Oriented X3, Cooperative Heart: Regular rate, Normal S1, Normal S2 Lungs: Other (Adequate airflow, somewhat decreased in the right lower lobe) Abdomen: Normal bowel sounds, Soft, No tenderness Extremities: No edema, Normal pulses Skin: No significant lesion Labs Labs: Laboratory Tests Test 04/09/22 14:07 Iron Level 53 ug/dL (65-175) Total Iron Binding Capacity 139 ug/dL (250-450) Iron Saturation 38 % (15-34) Assessment and Plan Assessmemt and Plan Problems Medical Problems: (1) Fever Status: Acute (2) Pleural effusion Status: Acute (3) Right lower lobe pneumonia Status: Acute (4) SOB (shortness of breath) Status: Acute Comment Review of Relevant I have reviewed the following items tam (where applicable) has been applied. Medications: Current Medications Medications (Trade) Dose Ordered Sig/Evgeny Route PRN Reason Start Time Stop Time Status Last Admin Dose Admin Pantoprazole Sodium (Protonix) 40 mg DAILYAC PO 04/10/22 07:30 04/10/22 09:08 Ceftriaxone Sodium (Rocephin) 2 gm Q24H IVP 04/09/22 13:00 04/09/22 15:27 Justifications for Admission Other Justification MERCEDEZ JAMES MD April 10, 2022 12:20
[2022-04-10] MEDS: cefTRIAXone IV Push 2 GM VIAL. IVP SCH (13:56)
--- NOTE | 2022-04-10 14:37 | PDOC ---
Infectious Disease Note Subjective Subjective pt is feeling good ROS ROS no n/v/d/sob Vital Sign Vital Signs Vital Signs Date Time Temp Pulse Resp B/P (MAP) Pulse Ox O2 Delivery O2 Flow Rate FiO2 04/10/22 11:44 Nasal Cannula 2.0 04/10/22 11:00 97.6 85 20 138/87 (104) 95 97.6 Physical Exam PHYSICAL EXAM PHYSICAL EXAMINATION: VITAL SIGNS: stable GENERAL: Alert, oriented x 3 male, lying in bed comfortably, in no acute distress. HEENT: Normocephalic, atraumatic. Anicteric. No thrush. Oral mucosa moist. NECK: Supple, no lymphadenopathy. LUNGS: Decreased breath sound over the right lung and some over the left lung base. No wheezing. HEART: S1, S2. No murmurs. ABDOMEN: Soft, obese. Bowel sounds present, nontender, nondistended. EXTREMITIES: No edema, no cyanosis. DERMATOLOGIC: Warm, dry, no generalized rash. Multiple tattoos. NEUROLOGIC: Alert, oriented x 3, grossly nonfocal. PSYCHIATRIC: Calm and cooperative. Labs Micro Microbiology 04/06/22 Gram Stain - Final, Resulted 04/06/22 Aerobic and Anaerobic Culture - Preliminary, Resulted Streptococcus Intermedius 04/05/22 Blood Culture - Preliminary, Resulted NO GROWTH AFTER 3 DAYS Objective Assessment IMPRESSION: 1. Streptococcus intermedius empyema, status post thoracocentesis. 2. Extensive right lung pneumonia with complicated parapneumonic effusion. 3. Dyspnea secondary to above. 4. Fever secondary to above, resolved. 5. Hyponatremia. 6. Protein-calorie malnutrition. 7. Anemia. Plan Plan of Care cont supportive care cont RADHA Degroot MD April 10, 2022 14:37
[2022-04-10 15:00] VITALS: BP 149/98
--- NOTE | 2022-04-10 15:12 | NUR ---
SS following up with discharge planning. SS reviewed pt chart and discussed with pt RN. Pt is currently requiring oxygen at two liters nasal canula. COVID19 negative. GI, ID, and Pulmonology following. Chest tube in place. Pt on IV Solu-Medrol and IV Rocephin. Self pay. [facility] [employer] following. SS will continue to follow for discharge planning.
[2022-04-10 19:00] VITALS: BP 135/79
[2022-04-10] MEDS: IV NORMAL SALINE 1000ML BAG 1,000 ML IV SCH ×2 (21:00→21:39)
[2022-04-10] MEDS: methylPREDNISolone SOD SUCC PF 40 MG/ML VIAL. IV SCH (21:39)
[2022-04-10 23:05] VITALS: BP 138/80
[2022-04-11 03:00] VITALS: BP 148/97
[2022-04-11 07:00] VITALS: BP 141/85
[2022-04-11] MEDS: IPRATRPIUM/ALBUTEROL 0.5/2.5MG 3 ML NEBU. NEB SCH ×4 (07:33→21:13)
--- NOTE | 2022-04-11 07:51 | PDOC ---
[facility] PROGRESS NOTE Date of Service DOS: DATE: 04/11/22 TIME: 07:47 Chief Complaint Chief Complaint Right lower lobe pneumonia - also with complicated parapneumonic effusion. Streptococcus intermedius empyema, status post thoracocentesis and subsequent chest tube placement Dyspnea secondary to above. Sepsis - present on admission. Improved Hyponatremia - likely hypovolemic, improving Severe Protein-calorie malnutrition. Anemia. Deep venous thrombosis prophylaxis. Full code. History of Present Illness History of Present Illness 04/06: Patient evaluated examined at bedside after thoracentesis. C/o some pain around procedure site but breathing a bit improved. Fluid study results pending. Continue antibiotics. Pulmonary recommendations reviewed. Discussed with bedside RN., 04/07: he was resting in bed pain controlled. Fluid studies showing gram- negative rods and gram-positive cocci in pleural fluid. We will escalate antibiotic and consult infectious diseases. Pulmonary consulted recommendations reviewed. Discussed with bedside RN. Continue current. 04/08: Patient evaluated examined at bedside. This morning he was resting in bed without complaint. Reevaluated patient in the evening and he was having profuse blood-tinged vomiting. Reported to me he was feeling terrible but no manager food used when i saw him; he did appear to be in quite a bit of distress. Pulm orders/recommendations reviewed. Given bloody vomitus start IV Protonix and GI consult; suspect hematemesis is secondary to respiratory infection but Protonix and GI consult for completeness sake. Discussed with bedside RN. 04/09: Afebrile. Chest tube is in place draining serosanguineous fluid. Continue on IV antibiotics, per ID. Continue empiric PPI. 04/10: Patient seen and evaluated. He denies any fever or worsening shortness of breath. Chest tube placed, s/p tPA. Continue Rocephin 2 g daily. Pleural fluid growing Streptococcus intermedius; sensitivities pending. Discussed with Dr. Sharpe, will continue chest tube for few more days. 04/11: Seen bedside still with cough chest tube still draining free-flowing. Afebrile. Sensitivities still pending on Streptococcus intermedius. Some nausea no further vomiting. Vitals/I&O Vitals/I&O: Vital Signs Date Time Temp Pulse Resp B/P (MAP) Pulse Ox O2 Delivery O2 Flow Rate FiO2 04/11/22 07:33 94 Room Air 5/25/22 03:00 98.4 74 20 148/97 (114) 98.4 04/10/22 21:40 2.0 I & O 04/10/22 04/10/22 04/11/22 15:00 23:00 07:00 Intake Total 240 ml 440 ml 200 ml Output Total 950 ml 1000 ml Balance 240 ml -510 ml -800 ml Physical Exam Physical Exam: PHYSICAL EXAMINATION: VITAL SIGNS: stable GENERAL: Alert, oriented x 3 male, lying in bed comfortably, in no acute distress. HEENT: Normocephalic, atraumatic. Anicteric. No thrush. Oral mucosa moist. NECK: Supple, no lymphadenopathy. LUNGS: Decreased breath sound over the right lung and some over the left lung base. No wheezing. HEART: S1, S2. No murmurs. ABDOMEN: Soft, obese. Bowel sounds present, nontender, nondistended. EXTREMITIES: No edema, no cyanosis. DERMATOLOGIC: Warm, dry, no generalized rash. Multiple tattoos. NEUROLOGIC: Alert, oriented x 3, grossly nonfocal. PSYCHIATRIC: Calm and cooperative. General: Alert, Oriented X3, Cooperative Heart: Regular rate, Normal S1, Normal S2 Lungs: Other (Adequate airflow, somewhat decreased in the right lower lobe) Abdomen: Normal bowel sounds, Soft, No tenderness Extremities: No edema, Normal pulses Skin: No significant lesion Assessment and Plan Assessmemt and Plan Problems Medical Problems: (1) Fever Status: Acute (2) Pleural effusion Status: Acute (3) Right lower lobe pneumonia Status: Acute (4) SOB (shortness of breath) Status: Acute Comment Review of Relevant I have reviewed the following items tam (where applicable) has been applied. Medications: Current Medications Medications (Trade) Dose Ordered Sig/Evgeny Route PRN Reason Start Time Stop Time Status Last Admin Dose Admin Methylprednisolone Sodium Succinate (SOLU-Medrol 40MG VIAL) 40 mg Q12HR IV 04/10/22 21:00 04/10/22 21:39 Justifications for Admission Other Justification DUSTIN JARAMILLO MD April 11, 2022 07:51
[2022-04-11 08:26] LABS: BASO % 0 % (0-3); EOS % 0 % (0-3); HEMOGLOBIN 11.2 g/dL (13.0-17.5); LYMPH # 2.3 x10^3/uL (1.0-4.8); LYMPH % 19 % (24-48); MEAN CORPUSCULAR HEMOGLOBIN 28 pg (25-35); MEAN CORPUSCULAR HGB CONC 32 g/dL (31-37); MEAN CORPUSCULAR VOLUME 87 fL (79-100); MONO # 0.7 x10^3/uL (0.0-1.1); MONO % 6 % (0-9); NEUT % 75 % (31-73); PLATELET COUNT 425 x10^3/uL (140-400); RED BLOOD COUNT 4.03 x10^6/uL (4.30-5.70)
--- NOTE | 2022-04-11 08:29 | RAD ---
XR CHEST 1V History: Reason: empyema / Spl. Instructions: / History: Comparison: April 10, 2022 Findings: Unchanged right basilar pigtail pleural catheter. Small loculated right empyema, decreased. Patchy ri ght mid and basilar opacities, decreased compared to prior. Unchanged heart size. No pneumothorax. Impression: 1. Decreased loculated right empyema. Stable right pigtail pleural drain. 2. Decreased patchy right mid and basilar opacities. Electronically signed by: Sebastien Gonzalez DO (04/11/2022 8:26 AM) [id number]
[2022-04-11 08:37] LABS: CALCIUM 9.2 mg/dL (8.5-10.1); GFR 87.2; POTASSIUM 4.1 mmol/L (3.5-5.1)
--- NOTE | 2022-04-11 09:11 | PDOC ---
PULMONARY PROGRESS NOTES DATE: 04/11/22 TIME: 09:07 Subjective Appetite today is not the best, not more short of air Vitals Vital Signs Date Time Temp Pulse Resp B/P (MAP) Pulse Ox O2 Delivery O2 Flow Rate FiO2 04/11/22 07:33 94 Room Air 04/11/22 07:00 97.7 78 20 141/85 (103) 97.7 04/10/22 21:40 2.0 ROS: No Nausea, No Chest Pain, No Abdominal Pain, No Increase Cough General: Alert Lungs: Other (Adequate airflow, somewhat decreased in the right lower lobe) Cardiovascular: S1, S2 Abdomen: Soft, Non-tender Neuro Exam: Alert Extremities: No Edema Skin: Warm Labs Laboratory Tests Test 04/09/22 14:07 04/11/22 08:10 Iron Level 53 ug/dL (65-175) Total Iron Binding Capacity 139 ug/dL (250-450) Iron Saturation 38 % (15-34) White Blood Count 12.0 x10^3/uL (4.0-11.0) Red Blood Count 4.03 x10^6/uL (4.30-5.70) Hemoglobin 11.2 g/dL (13.0-17.5) Hematocrit 35.0 % (39.0-53.0) Mean Corpuscular Volume 87 fL (79-100) Mean Corpuscular Hemoglobin 28 pg (25-35) Mean Corpuscular Hemoglobin Concent 32 g/dL (31-37) Red Cell Distribution Width 14.0 % (11.5-14.5) Platelet Count 425 x10^3/uL (140-400) Neutrophils (%) (Auto) 75 % (31-73) Lymphocytes (%) (Auto) 19 % (24-48) Monocytes (%) (Auto) 6 % (0-9) Eosinophils (%) (Auto) 0 % (0-3) Basophils (%) (Auto) 0 % (0-3) Neutrophils # (Auto) 9.0 x10^3/uL (1.8-7.7) Lymphocytes # (Auto) 2.3 x10^3/uL (1.0-4.8) Monocytes # (Auto) 0.7 x10^3/uL (0.0-1.1) Eosinophils # (Auto) 0.0 x10^3/uL (0.0-0.7) Basophils # (Auto) 0.0 x10^3/uL (0.0-0.2) Sodium Level 139 mmol/L (136-145) Potassium Level 4.1 mmol/L (3.5-5.1) Chloride Level 104 mmol/L (98-107) Carbon Dioxide Level 26 mmol/L (21-32) Anion Gap 9 (6-14) Blood Urea Nitrogen 14 mg/dL (8-26) Creatinine 1.0 mg/dL (0.7-1.3) Estimated GFR (Cockcroft-Gault) 87.2 Glucose Level 355 mg/dL (70-99) Calcium Level 9.2 mg/dL (8.5-10.1) Laboratory Tests Test 04/11/22 08:10 White Blood Count 12.0 x10^3/uL (4.0-11.0) Red Blood Count 4.03 x10^6/uL (4.30-5.70) Hemoglobin 11.2 g/dL (13.0-17.5) Hematocrit 35.0 % (39.0-53.0) Mean Corpuscular Volume 87 fL (79-100) Mean Corpuscular Hemoglobin 28 pg (25-35) Mean Corpuscular Hemoglobin Concent 32 g/dL (31-37) Red Cell Distribution Width 14.0 % (11.5-14.5) Platelet Count 425 x10^3/uL (140-400) Neutrophils (%) (Auto) 75 % (31-73) Lymphocytes (%) (Auto) 19 % (24-48) Monocytes (%) (Auto) 6 % (0-9) Eosinophils (%) (Auto) 0 % (0-3) Basophils (%) (Auto) 0 % (0-3) Neutrophils # (Auto) 9.0 x10^3/uL (1.8-7.7) Lymphocytes # (Auto) 2.3 x10^3/uL (1.0-4.8) Monocytes # (Auto) 0.7 x10^3/uL (0.0-1.1) Eosinophils # (Auto) 0.0 x10^3/uL (0.0-0.7) Basophils # (Auto) 0.0 x10^3/uL (0.0-0.2) Sodium Level 139 mmol/L (136-145) Potassium Level 4.1 mmol/L (3.5-5.1) Chloride Level 104 mmol/L (98-107) Carbon Dioxide Level 26 mmol/L (21-32) Anion Gap 9 (6-14) Blood Urea Nitrogen 14 mg/dL (8-26) Creatinine 1.0 mg/dL (0.7-1.3) Estimated GFR (Cockcroft-Gault) 87.2 Glucose Level 355 mg/dL (70-99) Calcium Level 9.2 mg/dL (8.5-10.1) Medications Active Scripts Medications Dose Route/Sig Max Daily Dose Days Date Category No Known Medications Prior To Admisstion (Info) Each 1 Each 1X 04/06/22 Reported Comments Chest x-ray reviewed 04/11/2022. Decrease loculation of pleural effusion chest x-ray reviewed 04/10/2022. Mild improved aeration right lower lobe. Impression . IMPRESSION: 1. Progressive dyspnea secondary to pneumonia with complicated parapneumonic effusion. 2. Abnormal x-ray, compatible with a complicated parapneumonic effusion./Empyema. 3. Fever secondary to above. 4. Sepsis. 5. Hyponatremia. 6. Empyema status post thoracentesis Plan . Chest tube placed, status post tPA. Mild improved aeration right lower lobe. Repeat CT chest to better assess for loculation Continue current empiric antibiotics Monitor response to tPA, 120 cc of fluid came out since last 24 hours. Pleural fluid cultures consistent with Streptococcus intermedius. Await sensitivities. ID consult appreciated. Follow recommendations. Taper off steroids. Discussed with Dr. Burroughs. Discussed with patient's family at the bedside. RADHA ACOSTA MD April 11, 2022 09:11
[2022-04-11] MEDS: LACTOBACILLUS RHAMNOSUS GG 1 CAPSULE. PO SCH ×2 (09:46→22:11)
[2022-04-11] MEDS: methylPREDNISolone SOD SUCC PF 40 MG/ML VIAL. IV SCH ×2 (09:46→22:12)
[2022-04-11] MEDS: PANTOPRAZOLE 40 MG TABLET.DR. PO SCH (09:46)
[2022-04-11] MEDS: IV NORMAL SALINE 1000ML BAG 1,000 ML IV SCH ×2 (10:20→22:17)
[2022-04-11 11:00] VITALS: BP 134/90
[2022-04-11] MEDS: ENOXAPARIN 40 MG/0.4 ML SYRINGE. SQ SCH (11:35)
[2022-04-11] MEDS: cefTRIAXone IV Push 2 GM VIAL. IVP SCH (12:41)
--- NOTE | 2022-04-11 13:44 | PDOC ---
Infectious Disease Note Subjective Subjective pt is feeling good ROS ROS no n/v/d/ Vital Sign Vital Signs Vital Signs Date Time Temp Pulse Resp B/P (MAP) Pulse Ox O2 Delivery O2 Flow Rate FiO2 04/11/22 11:33 95 Room Air 04/11/22 11:00 97.9 98 20 134/90 (105) 97.9 04/10/22 21:40 2.0 Physical Exam PHYSICAL EXAM PHYSICAL EXAMINATION: VITAL SIGNS: stable GENERAL: Alert, oriented x 3 male, lying in bed comfortably, in no acute distress. HEENT: Normocephalic, atraumatic. Anicteric. No thrush. Oral mucosa moist. NECK: Supple, no lymphadenopathy. LUNGS: Decreased breath sound over the right lung and some over the left lung base. No wheezing. HEART: S1, S2. No murmurs. ABDOMEN: Soft, obese. Bowel sounds present, nontender, nondistended. EXTREMITIES: No edema, no cyanosis. DERMATOLOGIC: Warm, dry, no generalized rash. Multiple tattoos. NEUROLOGIC: Alert, oriented x 3, grossly nonfocal. PSYCHIATRIC: Calm and cooperative. Labs Lab Laboratory Tests Test 04/11/22 08:10 White Blood Count 12.0 x10^3/uL (4.0-11.0) Red Blood Count 4.03 x10^6/uL (4.30-5.70) Hemoglobin 11.2 g/dL (13.0-17.5) Hematocrit 35.0 % (39.0-53.0) Mean Corpuscular Volume 87 fL (79-100) Mean Corpuscular Hemoglobin 28 pg (25-35) Mean Corpuscular Hemoglobin Concent 32 g/dL (31-37) Red Cell Distribution Width 14.0 % (11.5-14.5) Platelet Count 425 x10^3/uL (140-400) Neutrophils (%) (Auto) 75 % (31-73) Lymphocytes (%) (Auto) 19 % (24-48) Monocytes (%) (Auto) 6 % (0-9) Eosinophils (%) (Auto) 0 % (0-3) Basophils (%) (Auto) 0 % (0-3) Neutrophils # (Auto) 9.0 x10^3/uL (1.8-7.7) Lymphocytes # (Auto) 2.3 x10^3/uL (1.0-4.8) Monocytes # (Auto) 0.7 x10^3/uL (0.0-1.1) Eosinophils # (Auto) 0.0 x10^3/uL (0.0-0.7) Basophils # (Auto) 0.0 x10^3/uL (0.0-0.2) Sodium Level 139 mmol/L (136-145) Potassium Level 4.1 mmol/L (3.5-5.1) Chloride Level 104 mmol/L (98-107) Carbon Dioxide Level 26 mmol/L (21-32) Anion Gap 9 (6-14) Blood Urea Nitrogen 14 mg/dL (8-26) Creatinine 1.0 mg/dL (0.7-1.3) Estimated GFR (Cockcroft-Gault) 87.2 Glucose Level 355 mg/dL (70-99) Calcium Level 9.2 mg/dL (8.5-10.1) Micro Microbiology 04/06/22 Gram Stain - Final, Resulted 04/06/22 Aerobic and Anaerobic Culture - Preliminary, Resulted Streptococcus Intermedius 04/05/22 Blood Culture - Preliminary, Resulted NO GROWTH AFTER 3 DAYS Objective Assessment IMPRESSION: 1. Streptococcus intermedius empyema, status post thoracocentesis. 2. Extensive right lung pneumonia with complicated parapneumonic effusion. 3. Dyspnea secondary to above. 4. Fever secondary to above, resolved. 5. Hyponatremia. 6. Protein-calorie malnutrition. 7. Anemia. Plan Plan of Care cont supportive care cont RADHA Degroot MD April 11, 2022 13:44
[2022-04-11] MEDS ORDERED: DEXTROSE 50% 25 GM / 50ML DISP.SYRIN. IV PRN (13:45)
[2022-04-11 15:00] VITALS: BP 141/86
[2022-04-11] MEDS ORDERED: INSULIN LISPRO 300 UNITS/3 ML VIAL. SQ ONE (17:15)
[2022-04-11] MEDS: INSULIN LISPRO 300 UNITS/3 ML VIAL. SQ SCH ×2 (17:36→22:20)
[2022-04-11 19:00] VITALS: BP 146/97
[2022-04-11] MEDS: INSULIN GLARGINE SYRINGE. SQ SCH (22:19)
[2022-04-11 23:18] VITALS: BP 137/81
[2022-04-12 02:09] LABS: HEMOGLOBIN A1C 10.2 % (4.8-5.6)
[2022-04-12 03:00] VITALS: BP 143/92
[2022-04-12 07:00] VITALS: BP 141/82
[2022-04-12] MEDS: IPRATRPIUM/ALBUTEROL 0.5/2.5MG 3 ML NEBU. NEB SCH ×4 (07:41→21:45)
[2022-04-12] MEDS: LACTOBACILLUS RHAMNOSUS GG 1 CAPSULE. PO SCH ×2 (08:32→20:12)
[2022-04-12] MEDS: PANTOPRAZOLE 40 MG TABLET.DR. PO SCH (08:32)
--- NOTE | 2022-04-12 08:43 | RAD ---
Single AP view of the chest. Comparison: 04/11/2022. Indication: Empyema Findings: Right basilar chest tube is reidentified. The heart is not enlarged. No pneumothorax. No significant residual pleural fluid seen on single AP examination. Persistent right basilar atelectasis as well. Impression: 1. No significant residual pleural fluid seen on CT. There is persistent right basilar atelectasis. Electronically signed by: Brandon Roblero MD (04/12/2022 8:40 AM) [id number]
[2022-04-12] MEDS: INSULIN LISPRO 300 UNITS/3 ML VIAL. SQ SCH ×4 (08:52→20:14)
[2022-04-12] MEDS: methylPREDNISolone SOD SUCC PF 40 MG/ML VIAL. IV SCH (09:19)
--- NOTE | 2022-04-12 10:31 | RAD ---
CT THORAX WO History: Empyema. Status post TPA. Technique: Noncontrast CT of the chest was performed. Coronal and sagittal reconstructions were perfo rmed. Exposure: One or more of the following individualized dose reduction techniques were utilized for thi s examination: 1. Automated exposure control 2. Adjustment of the mA and/or kV according to patient size 3. Use of iterative reconstruction technique. Comparison: April 08, 2022 Findings: Chest: Mild prominent mediastinal lymph nodes, decreased compared to prior. No coronary artery calcif ications. Interval placement right pigtail pleural catheter. No significant residual fluid. There are small air component. Persistent thickened pleural rind. Patchy right upper, mid and lower lung opacities and c onsolidations, decreased compared to prior. Mild left lower lobe and lingula linear atelectasis. 2 mm left lower lobe pulmonary nodule (series 2 image 34), unchanged. 4 mm left lower lobe pleural-ba sed nodule (image 30), unchanged. Upper abdomen: The imaged upper abdomen is unremarkable. Bones: No pathologic osseous lesions. Impression: 1. Interval placement right pigtail pleural catheter. Resolved fluid component. Small residual air c omponent. 2. Decreased right lung atelectasis and consolidations. 3. Decreased mediastinal lymphadenopathy. 4. Small left pulmonary nodules, unchanged. Recommend one-year follow-up chest CT without contrast i f high risk. Electronically signed by: Sebastien Gonzalez DO (04/12/2022 10:29 AM) [id number]
--- NOTE | 2022-04-12 10:56 | PDOC ---
PULMONARY PROGRESS NOTES DATE: 04/12/22 TIME: 10:52 Subjective Patient denies any shortness of breath. Feels better. Chest tube with air leak. Vitals Vital Signs Date Time Temp Pulse Resp B/P (MAP) Pulse Ox O2 Delivery O2 Flow Rate FiO2 04/12/22 07:45 Room Air 04/12/22 07:42 98 04/12/22 07:00 98.1 81 15 141/82 (101) 98.1 ROS: No Nausea, No Chest Pain, No Abdominal Pain, No Increase Cough General: Alert Lungs: Other (Adequate airflow, somewhat decreased in the right lower lobe) Cardiovascular: S1, S2 Abdomen: Soft, Non-tender Neuro Exam: Alert Extremities: No Edema Skin: Warm Labs Laboratory Tests Test 04/11/22 08:10 04/11/22 14:11 04/11/22 17:00 04/11/22 19:54 White Blood Count 12.0 x10^3/uL (4.0-11.0) Red Blood Count 4.03 x10^6/uL (4.30-5.70) Hemoglobin 11.2 g/dL (13.0-17.5) Hematocrit 35.0 % (39.0-53.0) Mean Corpuscular Volume 87 fL (79-100) Mean Corpuscular Hemoglobin 28 pg (25-35) Mean Corpuscular Hemoglobin Concent 32 g/dL (31-37) Red Cell Distribution Width 14.0 % (11.5-14.5) Platelet Count 425 x10^3/uL (140-400) Neutrophils (%) (Auto) 75 % (31-73) Lymphocytes (%) (Auto) 19 % (24-48) Monocytes (%) (Auto) 6 % (0-9) Eosinophils (%) (Auto) 0 % (0-3) Basophils (%) (Auto) 0 % (0-3) Neutrophils # (Auto) 9.0 x10^3/uL (1.8-7.7) Lymphocytes # (Auto) 2.3 x10^3/uL (1.0-4.8) Monocytes # (Auto) 0.7 x10^3/uL (0.0-1.1) Eosinophils # (Auto) 0.0 x10^3/uL (0.0-0.7) Basophils # (Auto) 0.0 x10^3/uL (0.0-0.2) Sodium Level 139 mmol/L (136-145) Potassium Level 4.1 mmol/L (3.5-5.1) Chloride Level 104 mmol/L (98-107) Carbon Dioxide Level 26 mmol/L (21-32) Anion Gap 9 (6-14) Blood Urea Nitrogen 14 mg/dL (8-26) Creatinine 1.0 mg/dL (0.7-1.3) Estimated GFR (Cockcroft-Gault) 87.2 Glucose Level 355 mg/dL (70-99) Calcium Level 9.2 mg/dL (8.5-10.1) Hemoglobin A1c 10.2 % (4.8-5.6) Glucose (Fingerstick) 489 mg/dL (70-99) 348 mg/dL (70-99) Test 04/12/22 07:16 Glucose (Fingerstick) 320 mg/dL (70-99) Laboratory Tests Test 04/11/22 14:11 04/11/22 17:00 04/11/22 19:54 04/12/22 07:16 Hemoglobin A1c 10.2 % (4.8-5.6) Glucose (Fingerstick) 489 mg/dL (70-99) 348 mg/dL (70-99) 320 mg/dL (70-99) Medications Active Scripts Medications Dose Route/Sig Max Daily Dose Days Date Category No Known Medications Prior To Admisstion (Info) Each 1 Each 1X 04/06/[address] chest reviewed 04/11/2022. Impression: 1. Interval placement right pigtail pleural catheter. Resolved fluid component. Small residual air component. 2. Decreased right lung atelectasis and consolidations. 3. Decreased mediastinal lymphadenopathy. 4. Small left pulmonary nodules, unchanged. Recommend one-year follow-up chest CT without contrast if high risk. Chest x-ray reviewed 04/11/2022. Decrease loculation of pleural effusion chest x-ray reviewed 04/10/2022. Mild improved aeration right lower lobe. Impression . IMPRESSION: 1. Progressive dyspnea secondary to pneumonia with complicated parapneumonic effusion/empyema 2. Abnormal x-ray/CT chest, compatible with a complicated parapneumonic effusion./Empyema. 3. Fever secondary to above. Resolved 4. Sepsis. 5. Hyponatremia. 6. Empyema status post thoracentesis and tPA. 7. Persistent air leak. Plan . Chest tube placed, status post tPA. Overall CT chest has improved. Loculations have improved. Patient has a tiny residual pneumothorax. Patient continues to have air leak. Not ready for clamping of chest tube. Continue current empiric antibiotics Pleural fluid cultures consistent with Streptococcus intermedius. Await sensitivities. ID consult appreciated. Follow recommendations. Blood sugars still high. Discontinue steroids. Discussed with patient's family at the bedside. RADHA ACOSTA MD April 12, 2022 10:56
[2022-04-12 11:00] VITALS: BP 143/77
[2022-04-12] MEDS: ENOXAPARIN 40 MG/0.4 ML SYRINGE. SQ SCH (11:52)
--- NOTE | 2022-04-12 11:54 | PDOC ---
[facility] PROGRESS NOTE Date of Service DOS: DATE: 04/12/22 TIME: 11:52 Chief Complaint Chief Complaint Right lower lobe pneumonia - also with complicated parapneumonic effusion. Streptococcus intermedius empyema, status post thoracocentesis and subsequent chest tube placement Dyspnea secondary to above. Sepsis - present on admission. Improved Hyponatremia - likely hypovolemic, improving Severe Protein-calorie malnutrition. Anemia. Deep venous thrombosis prophylaxis. Full code. History of Present Illness History of Present Illness 04/06: Patient evaluated examined at bedside after thoracentesis. C/o some pain around procedure site but breathing a bit improved. Fluid study results pending. Continue antibiotics. Pulmonary recommendations reviewed. Discussed with bedside RN., 04/07: he was resting in bed pain controlled. Fluid studies showing gram- negative rods and gram-positive cocci in pleural fluid. We will escalate antibiotic and consult infectious diseases. Pulmonary consulted recommendations reviewed. Discussed with bedside RN. Continue current. 04/08: Patient evaluated examined at bedside. This morning he was resting in bed without complaint. Reevaluated patient in the evening and he was having profuse blood-tinged vomiting. Reported to me he was feeling terrible but no manager program management used when i saw him; he did appear to be in quite a bit of distress. Pulm orders/recommendations reviewed. Given bloody vomitus start IV Protonix and GI consult; suspect hematemesis is secondary to respiratory infection but Protonix and GI consult for completeness sake. Discussed with bedside RN. 04/09: Afebrile. Chest tube is in place draining serosanguineous fluid. Continue on IV antibiotics, per ID. Continue empiric PPI. 04/10: Patient seen and evaluated. He denies any fever or worsening shortness of breath. Chest tube placed, s/p tPA. Continue Rocephin 2 g daily. Pleural fluid growing Streptococcus intermedius; sensitivities pending. Discussed with Dr. Sharpe, will continue chest tube for few more days. 04/11: Seen bedside still with cough chest tube still draining free-flowing. Afebrile. Sensitivities still pending on Streptococcus intermedius. Some nausea no further vomiting. 04/12: Patient seen and evaluated. Afebrile, breathing comfortably on room air. Chest tube still in place. He had CT chest today that showed decreased right lung atelectasis and consolidations, decreased mediastinal lymphadenopathy. Await sensitivities for Streptococcus intermedius. Continue with IV Rocephin. Vitals/I&O Vitals/I&O: Vital Signs Date Time Temp Pulse Resp B/P (MAP) Pulse Ox O2 Delivery O2 Flow Rate FiO2 04/12/22 11:00 98.1 92 18 143/77 (99) 95 98.1 04/12/22 07:45 Room Air I & O 04/11/22 04/11/22 04/12/22 15:00 23:00 07:00 Intake Total 0 ml 120 ml Output Total 930 ml 518 ml 1800 ml Balance -930 ml -398 ml -1800 ml Physical Exam Physical Exam: PHYSICAL EXAMINATION: VITAL SIGNS: stable GENERAL: Alert, oriented x 3 male, lying in bed comfortably, in no acute distress. HEENT: Normocephalic, atraumatic. Anicteric. No thrush. Oral mucosa moist. NECK: Supple, no lymphadenopathy. LUNGS: Decreased breath sound over the right lung and some over the left lung base. No wheezing. HEART: S1, S2. No murmurs. ABDOMEN: Soft, obese. Bowel sounds present, nontender, nondistended. EXTREMITIES: No edema, no cyanosis. DERMATOLOGIC: Warm, dry, no generalized rash. Multiple tattoos. NEUROLOGIC: Alert, oriented x 3, grossly nonfocal. PSYCHIATRIC: Calm and cooperative. General: Alert, Oriented X3, Cooperative Heart: Regular rate, Normal S1, Normal S2 Lungs: Other (Adequate airflow, somewhat decreased in the right lower lobe) Abdomen: Normal bowel sounds, Soft, No tenderness Extremities: No edema, Normal pulses Skin: No significant lesion Labs Labs: Laboratory Tests Test 04/11/22 14:11 04/11/22 17:00 04/11/22 19:54 04/12/22 07:16 Hemoglobin A1c 10.2 % (4.8-5.6) Glucose (Fingerstick) 489 mg/dL (70-99) 348 mg/dL (70-99) 320 mg/dL (70-99) Assessment and Plan Assessmemt and Plan Problems Medical Problems: (1) Fever Status: Acute (2) Pleural effusion Status: Acute (3) Right lower lobe pneumonia Status: Acute (4) SOB (shortness of breath) Status: Acute Comment Review of Relevant I have reviewed the following items tam (where applicable) has been applied. Medications: Current Medications Medications (Trade) Dose Ordered Sig/Evgeny Route PRN Reason Start Time Stop Time Status Last Admin Dose Admin Insulin Human Lispro (HumaLOG) 0-9 UNITS TIDACHC SQ 04/11/22 16:30 04/12/22 08:52 Insulin Glargine (Lantus Syringe) 15 unit QHS SQ 04/11/22 21:00 04/11/22 22:19 Insulin Human Lispro (HumaLOG) 8 units 1X ONCE SQ 04/11/22 17:15 04/11/22 17:16 DC 04/11/22 17:36 Justifications for Admission Other Justification MERCEDEZ JAMES MD April 12, 2022 11:54
--- NOTE | 2022-04-12 12:47 | PDOC ---
Infectious Disease Note Subjective Subjective pt is feeling good ROS ROS No nausea vomiting diarrhea or fever Vital Sign Vital Signs Vital Signs Date Time Temp Pulse Resp B/P (MAP) Pulse Ox O2 Delivery O2 Flow Rate FiO2 04/12/22 12:42 96 Room Air 04/12/22 11:00 98.1 92 18 143/77 (99) 98.1 Physical Exam PHYSICAL EXAM PHYSICAL EXAMINATION: VITAL SIGNS: stable GENERAL: Alert, oriented x 3 male, lying in bed comfortably, in no acute distress. HEENT: Normocephalic, atraumatic. Anicteric. No thrush. Oral mucosa moist. NECK: Supple, no lymphadenopathy. LUNGS: Decreased breath sound over the right lung and some over the left lung base. No wheezing. HEART: S1, S2. No murmurs. ABDOMEN: Soft, obese. Bowel sounds present, nontender, nondistended. EXTREMITIES: No edema, no cyanosis. DERMATOLOGIC: Warm, dry, no generalized rash. Multiple tattoos. NEUROLOGIC: Alert, oriented x 3, grossly nonfocal. PSYCHIATRIC: Calm and cooperative. Labs Lab Laboratory Tests Test 04/11/22 14:11 04/11/22 17:00 04/11/22 19:54 04/12/22 07:16 Hemoglobin A1c 10.2 % (4.8-5.6) Glucose (Fingerstick) 489 mg/dL (70-99) 348 mg/dL (70-99) 320 mg/dL (70-99) Test 04/12/22 12:09 Glucose (Fingerstick) 332 mg/dL (70-99) Micro Microbiology 04/06/22 Gram Stain - Final, Resulted 04/06/22 Aerobic and Anaerobic Culture - Preliminary, Resulted Streptococcus Intermedius 04/05/22 Blood Culture - Preliminary, Resulted NO GROWTH AFTER 3 DAYS Objective Assessment IMPRESSION: 1. Streptococcus intermedius empyema, status post thoracocentesis. 2. Extensive right lung pneumonia with complicated parapneumonic effusion. 3. Dyspnea secondary to above. 4. Fever secondary to above, resolved. 5. Hyponatremia. 6. Protein-calorie malnutrition. 7. Anemia. Plan Plan of Care cont supportive care cont RADHA Degroot MD April 12, 2022 12:47
--- NOTE | 2022-04-12 13:21 | NUR ---
SS following up with discharge planning. SS reviewed pt chart and discussed with pt RN. Pt is currently on room air. COVID19 negative. Chest tube in place. Pt on IV Rocephin. Self pay. [employer] following. SS will continue to follow for discharge planning.
[2022-04-12] MEDS: cefTRIAXone IV Push 2 GM VIAL. IVP SCH (14:16)
[2022-04-12] MEDS: IV NORMAL SALINE 1000ML BAG 1,000 ML IV SCH (14:30)
[2022-04-12 15:00] VITALS: BP 130/78
[2022-04-12 19:00] VITALS: BP 117/72
[2022-04-12] MEDS: INSULIN GLARGINE SYRINGE. SQ SCH (20:15)
[2022-04-12 23:00] VITALS: BP 128/77
[2022-04-13 03:00] VITALS: BP 119/85
[2022-04-13] MEDS: IV NORMAL SALINE 1000ML BAG 1,000 ML IV SCH ×2 (05:08→15:40)
[2022-04-13 07:00] VITALS: BP 139/86
[2022-04-13] MEDS: IPRATRPIUM/ALBUTEROL 0.5/2.5MG 3 ML NEBU. NEB SCH ×4 (08:03→21:12)
[2022-04-13] MEDS: LACTOBACILLUS RHAMNOSUS GG 1 CAPSULE. PO SCH ×2 (08:28→20:25)
[2022-04-13] MEDS: PANTOPRAZOLE 40 MG TABLET.DR. PO SCH (08:28)
[2022-04-13] MEDS: INSULIN LISPRO 300 UNITS/3 ML VIAL. SQ SCH ×4 (08:33→20:27)
[2022-04-13] MEDS: HYDROcodone/APAP 10/325 1 TAB TABLET PO PRN ×2 (09:38→13:59)
--- NOTE | 2022-04-13 10:12 | PDOC ---
PULMONARY PROGRESS NOTES DATE: 04/13/22 TIME: 10:09 Subjective Patient denies any shortness of breath. Feels better. Chest tube with air leak. Vitals Vital Signs Date Time Temp Pulse Resp B/P (MAP) Pulse Ox O2 Delivery O2 Flow Rate FiO2 04/13/22 09:38 16 98 Room Air 04/13/22 08:03 2.0 04/13/22 07:00 97.7 85 139/86 (103) 97.7 ROS: No Nausea, No Chest Pain, No Abdominal Pain, No Increase Cough General: Alert Lungs: Other (Adequate airflow, somewhat decreased in the right lower lobe) Cardiovascular: S1, S2 Abdomen: Soft, Non-tender Neuro Exam: Alert Extremities: No Edema Skin: Warm Labs Laboratory Tests Test 04/11/22 14:11 04/11/22 17:00 04/11/22 19:54 04/12/22 07:16 Hemoglobin A1c 10.2 % (4.8-5.6) Glucose (Fingerstick) 489 mg/dL (70-99) 348 mg/dL (70-99) 320 mg/dL (70-99) Test 04/12/22 12:09 04/12/22 16:45 04/12/22 20:10 04/13/22 07:45 Glucose (Fingerstick) 332 mg/dL (70-99) 305 mg/dL (70-99) 323 mg/dL (70-99) 201 mg/dL (70-99) Laboratory Tests Test 04/12/22 12:09 04/12/22 16:45 04/12/22 20:10 04/13/22 07:45 Glucose (Fingerstick) 332 mg/dL (70-99) 305 mg/dL (70-99) 323 mg/dL (70-99) 201 mg/dL (70-99) Medications Active Scripts Medications Dose Route/Sig Max Daily Dose Days Date Category No Known Medications Prior To Admisstion (Info) Each 1 Each 1X 04/06/22 Reported Comments Chest x-ray reviewed 04/13/2022. Minimal opacification right lower lobe. No definite pneumothorax seen. CT chest reviewed 04/11/2022. Impression: 1. Interval placement right pigtail pleural catheter. Resolved fluid component. Small residual air component. 2. Decreased right lung atelectasis and consolidations. 3. Decreased mediastinal lymphadenopathy. 4. Small left pulmonary nodules, unchanged. Recommend one-year follow-up chest CT without contrast if high risk. Chest x-ray reviewed 04/11/2022. Decrease loculation of pleural effusion chest x-ray reviewed 04/10/2022. Mild improved aeration right lower lobe. Impression . IMPRESSION: 1. Progressive dyspnea secondary to pneumonia with complicated empyema 2. Abnormal x-ray/CT chest, compatible with a complicated parapneumonic effusion./Empyema. 3. Fever secondary to above. Resolved 4. Sepsis. 5. Hyponatremia. 6. Empyema status post thoracentesis and tPA. 7. Persistent air leak. Plan . Chest tube placed, status post tPA. Overall CT chest has improved. Loculations have improved. Patient has a tiny residual pneumothorax. Patient continues to have air leak. Airleak seems to have improved today. Not ready to clamp the chest tube yet. Continue current empiric antibiotics Pleural fluid cultures consistent with Streptococcus intermedius and Staph hominis. ID consult appreciated. Follow recommendations. Discussed with Dr. Burroughs. RADHA ACOSTA MD April 13, 2022 10:12
[2022-04-13 11:00] VITALS: BP 138/78
--- NOTE | 2022-04-13 11:52 | PDOC ---
[facility] PROGRESS NOTE Date of Service DOS: DATE: 04/13/22 TIME: 11:50 Chief Complaint Chief Complaint Right lower lobe pneumonia - also with complicated parapneumonic effusion. Streptococcus intermedius empyema, status post thoracocentesis and subsequent chest tube placement Dyspnea secondary to above. Sepsis - present on admission. Improved Hyponatremia - likely hypovolemic, improving Severe Protein-calorie malnutrition. Anemia. Deep venous thrombosis prophylaxis. Full code. History of Present Illness History of Present Illness 04/06: Patient evaluated examined at bedside after thoracentesis. C/o some pain around procedure site but breathing a bit improved. Fluid study results pending. Continue antibiotics. Pulmonary recommendations reviewed. Discussed with bedside RN., 04/07: he was resting in bed pain controlled. Fluid studies showing gram- negative rods and gram-positive cocci in pleural fluid. We will escalate antibiotic and consult infectious diseases. Pulmonary consulted recommendations reviewed. Discussed with bedside RN. Continue current. 04/08: Patient evaluated examined at bedside. This morning he was resting in bed without complaint. Reevaluated patient in the evening and he was having profuse blood-tinged vomiting. Reported to me he was feeling terrible but no parts specialist used when i saw him; he did appear to be in quite a bit of distress. Pulm orders/recommendations reviewed. Given bloody vomitus start IV Protonix and GI consult; suspect hematemesis is secondary to respiratory infection but Protonix and GI consult for completeness sake. Discussed with bedside RN. 04/09: Afebrile. Chest tube is in place draining serosanguineous fluid. Continue on IV antibiotics, per ID. Continue empiric PPI. 04/10: Patient seen and evaluated. He denies any fever or worsening shortness of breath. Chest tube placed, s/p tPA. Continue Rocephin 2 g daily. Pleural fluid growing Streptococcus intermedius; sensitivities pending. Discussed with Dr. Sharpe, will continue chest tube for few more days. 04/11: Seen bedside still with cough chest tube still draining free-flowing. Afebrile. Sensitivities still pending on Streptococcus intermedius. Some nausea no further vomiting. 04/12: Patient seen and evaluated. Afebrile, breathing comfortably on room air. Chest tube still in place. He had CT chest today that showed decreased right lung atelectasis and consolidations, decreased mediastinal lymphadenopathy. Await sensitivities for Streptococcus intermedius. Continue with IV Rocephin. 04/13: Patient denies any shortness of breath, on room air. Chest tube remains in place. Discussed with pulmonology, some concern for air leak. Chest tube is not been clamped. Continue IV antibiotics and follow sensitivities. Vitals/I&O Vitals/I&O: Vital Signs Date Time Temp Pulse Resp B/P (MAP) Pulse Ox O2 Delivery O2 Flow Rate FiO2 04/13/22 10:14 16 98 Room Air 04/13/22 08:03 2.0 04/13/22 07:00 97.7 85 139/86 (103) 97.7 I & O 04/12/22 04/12/22 04/13/22 15:00 23:00 07:00 Intake Total 1000 ml 240 ml Output Total 300 ml Balance 1000 ml -60 ml Physical Exam Physical Exam: PHYSICAL EXAMINATION: VITAL SIGNS: stable GENERAL: Alert, oriented x 3 male, lying in bed comfortably, in no acute distress. HEENT: Normocephalic, atraumatic. Anicteric. No thrush. Oral mucosa moist. NECK: Supple, no lymphadenopathy. LUNGS: Decreased breath sound over the right lung and some over the left lung base. No wheezing. HEART: S1, S2. No murmurs. ABDOMEN: Soft, obese. Bowel sounds present, nontender, nondistended. EXTREMITIES: No edema, no cyanosis. DERMATOLOGIC: Warm, dry, no generalized rash. Multiple tattoos. NEUROLOGIC: Alert, oriented x 3, grossly nonfocal. PSYCHIATRIC: Calm and cooperative. General: Alert, Oriented X3, Cooperative Heart: Regular rate, Normal S1, Normal S2 Lungs: Other (Adequate airflow, somewhat decreased in the right lower lobe) Abdomen: Normal bowel sounds, Soft, No tenderness Extremities: No edema, Normal pulses Skin: No significant lesion Labs Labs: Laboratory Tests Test 04/12/22 12:09 04/12/22 16:45 04/12/22 20:10 04/13/22 07:45 Glucose (Fingerstick) 332 mg/dL (70-99) 305 mg/dL (70-99) 323 mg/dL (70-99) 201 mg/dL (70-99) Test 04/13/22 11:34 Glucose (Fingerstick) 154 mg/dL (70-99) Assessment and Plan Assessmemt and Plan Problems Medical Problems: (1) Fever Status: Acute (2) Pleural effusion Status: Acute (3) Right lower lobe pneumonia Status: Acute (4) SOB (shortness of breath) Status: Acute Comment Review of Relevant I have reviewed the following items tam (where applicable) has been applied. Justifications for Admission Other Justification MERCEDEZ JAMES MD April 13, 2022 11:52
--- NOTE | 2022-04-13 11:55 | RAD ---
XR CHEST 1V History: Reason: empyema / Spl. Instructions: / History: Comparison: April 12, 2020 Findings: Stable right basilar pigtail pleural drain. Right lateral pleural thickening. Patchy right basilar op acities, unchanged. No pneumothorax. Unchanged heart size. Impression: 1. Stable appearance of the chest compared to prior. Electronically signed by: Sebastien Gonzalez DO (04/13/2022 11:53 AM) [id number]
[2022-04-13] MEDS: ENOXAPARIN 40 MG/0.4 ML SYRINGE. SQ SCH (12:21)
[2022-04-13] MEDS: cefTRIAXone IV Push 2 GM VIAL. IVP SCH (13:41)
--- NOTE | 2022-04-13 13:41 | PDOC ---
Infectious Disease Note Subjective Subjective pt is feeling good ROS ROS No nausea vomiting diarrhea Vital Sign Vital Signs Vital Signs Date Time Temp Pulse Resp B/P (MAP) Pulse Ox O2 Delivery O2 Flow Rate FiO2 04/13/22 12:29 94 Nasal Cannula 2.0 04/13/22 11:00 97.9 86 18 138/78 (98) 97.9 Physical Exam PHYSICAL EXAM PHYSICAL EXAMINATION: VITAL SIGNS: stable GENERAL: Alert, oriented x 3 male, lying in bed comfortably, in no acute distress. HEENT: Normocephalic, atraumatic. Anicteric. No thrush. Oral mucosa moist. NECK: Supple, no lymphadenopathy. LUNGS: Decreased breath sound over the right lung and some over the left lung base. No wheezing. HEART: S1, S2. No murmurs. ABDOMEN: Soft, obese. Bowel sounds present, nontender, nondistended. EXTREMITIES: No edema, no cyanosis. DERMATOLOGIC: Warm, dry, no generalized rash. Multiple tattoos. NEUROLOGIC: Alert, oriented x 3, grossly nonfocal. PSYCHIATRIC: Calm and cooperative. Labs Lab Laboratory Tests Test 04/12/22 16:45 04/12/22 20:10 04/13/22 07:45 04/13/22 11:34 Glucose (Fingerstick) 305 mg/dL (70-99) 323 mg/dL (70-99) 201 mg/dL (70-99) 154 mg/dL (70-99) Micro Microbiology 04/06/22 Gram Stain - Final, Resulted 04/06/22 Aerobic and Anaerobic Culture - Preliminary, Resulted Streptococcus Intermedius 04/05/22 Blood Culture - Preliminary, Resulted NO GROWTH AFTER 3 DAYS Objective Assessment IMPRESSION: 1. Streptococcus intermedius empyema, status post thoracocentesis. 2. Extensive right lung pneumonia with complicated parapneumonic effusion. 3. Dyspnea secondary to above. 4. Fever secondary to above, resolved. 5. Hyponatremia. 6. Protein-calorie malnutrition. 7. Anemia. Plan Plan of Care cont supportive care cont RADHA Degroot MD April 13, 2022 13:41
[2022-04-13 15:00] VITALS: BP 122/84
--- NOTE | 2022-04-13 17:35 | NUR ---
Family members present, assisted in translating nursing education on diabetes disease process, treatments and lifestyle changes to help manage disease process. Patient verbalized understanding on making dietary changes and need for monitoring blood glucose after discharge.
[2022-04-13 19:00] VITALS: BP 115/70
[2022-04-13] MEDS: INSULIN GLARGINE SYRINGE. SQ SCH (20:26)
[2022-04-13 23:00] VITALS: BP 106/66
[2022-04-14 03:00] VITALS: BP 113/72
[2022-04-14] MEDS: IV NORMAL SALINE 1000ML BAG 1,000 ML IV SCH (06:05)
[2022-04-14 07:00] VITALS: BP 110/68
[2022-04-14] MEDS: IPRATRPIUM/ALBUTEROL 0.5/2.5MG 3 ML NEBU. NEB SCH ×2 (07:09→11:39)
[2022-04-14] MEDS: LACTOBACILLUS RHAMNOSUS GG 1 CAPSULE. PO SCH (08:39)
[2022-04-14] MEDS: PANTOPRAZOLE 40 MG TABLET.DR. PO SCH (08:40)
[2022-04-14] MEDS: INSULIN LISPRO 300 UNITS/3 ML VIAL. SQ SCH ×2 (08:47→11:30)
--- NOTE | 2022-04-14 09:23 | RAD ---
Portable AP chest. HISTORY: Empyema AP view was taken of the chest. Heart is normal in size. Patient's taken a poor inspiration. There is a right chest tube. There are persistent right basilar infiltrates without change. Patient's taken a poor inspiration. IMPRESSION: 1. Right chest tube unchanged. 2. Persistent right basilar infiltrates. 3. Little change from the prior study. Electronically signed by: Jarret Bower MD (04/14/2022 9:20 AM) [id number]
--- NOTE | 2022-04-14 09:57 | PDOC ---
PULMONARY PROGRESS NOTES DATE: 04/14/22 TIME: 09:55 Subjective Patient denies any shortness of breath. Feels better. Chest tube with no air leak. Vitals Vital Signs Date Time Temp Pulse Resp B/P (MAP) Pulse Ox O2 Delivery O2 Flow Rate FiO2 04/14/22 07:09 96 Room Air 04/14/22 07:00 98.1 92 18 110/68 (82) 2.0 98.1 ROS: No Nausea, No Chest Pain, No Abdominal Pain, No Increase Cough General: Alert Lungs: Other (Adequate airflow, somewhat decreased in the right lower lobe) Cardiovascular: S1, S2 Abdomen: Soft, Non-tender Neuro Exam: Alert Extremities: No Edema Skin: Warm Labs Laboratory Tests Test 04/12/22 12:09 04/12/22 16:45 04/12/22 20:10 04/13/22 07:45 Glucose (Fingerstick) 332 mg/dL (70-99) 305 mg/dL (70-99) 323 mg/dL (70-99) 201 mg/dL (70-99) Test 04/13/22 11:34 04/13/22 17:05 04/13/22 20:00 04/14/22 07:59 Glucose (Fingerstick) 154 mg/dL (70-99) 267 mg/dL (70-99) 202 mg/dL (70-99) 203 mg/dL (70-99) Laboratory Tests Test 04/13/22 11:34 04/13/22 17:05 04/13/22 20:00 04/14/22 07:59 Glucose (Fingerstick) 154 mg/dL (70-99) 267 mg/dL (70-99) 202 mg/dL (70-99) 203 mg/dL (70-99) Medications Active Scripts Medications Dose Route/Sig Max Daily Dose Days Date Category No Known Medications Prior To Admisstion (Info) Each 1 Each MC 1X 04/06/22 Reported Comments Chest x-ray reviewed 04/13/2022. Minimal opacification right lower lobe. No definite pneumothorax seen. CT chest reviewed 04/11/2022. Impression: 1. Interval placement right pigtail pleural catheter. Resolved fluid component. Small residual air component. 2. Decreased right lung atelectasis and consolidations. 3. Decreased mediastinal lymphadenopathy. 4. Small left pulmonary nodules, unchanged. Recommend one-year follow-up chest CT without contrast if high risk. Chest x-ray reviewed 04/11/2022. Decrease loculation of pleural effusion chest x-ray reviewed 04/10/2022. Mild improved aeration right lower lobe. Impression . IMPRESSION: 1. Progressive dyspnea secondary to pneumonia with complicated empyema 2. Abnormal x-ray/CT chest, compatible with a complicated parapneumonic effusion./Empyema. 3. Fever secondary to above. Resolved 4. Sepsis. 5. Hyponatremia. 6. Empyema status post thoracentesis and tPA. 7. Airleak resolved. Plan . Chest tube placed, status post tPA. Overall CT chest has improved. Loculations have improved. No definite pneumothorax seen. Airleak has resolved from the chest tube. Will remove the chest tube today and okay to discharge the patient. Changed to p.o. antibiotic per ID recommendations. Pleural fluid cultures consistent with Streptococcus intermedius and Staph hominis. Discussed with RN. RADHA ACOSTA MD April 14, 2022 09:57
[2022-04-14 11:00] VITALS: BP 131/81
[2022-04-14] MEDS: ENOXAPARIN 40 MG/0.4 ML SYRINGE. SQ SCH (11:00)
[2022-04-14] MEDS ORDERED: HYDR-2769 PO (11:45)
[2022-04-14] MEDS ORDERED: CEFD300C PO (11:47)
--- NOTE | 2022-04-14 13:26 | NUR ---
pt was discharged home with self care today. 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 he was also explained that he can remove the bandage in 48 hrs from date of discharge. taken out to the main entrance at 1315, Marco Antonio Arevalo RN
== END 2022-04-14 13:15 | disposition home or self-care (01) | DRG 871 ==
LOC: ER 15:55 → ED HOLD 16:50 → 5 NORTH 19:15
PROVIDERS: ADMIT Internal Medicine; ATTEND Internal Medicine
PROC: 0W993ZZ Drainage of Right Pleural Cavity, Percutaneous Approach (ICD-10-PCS; 2022-04-06)
PROC: 0W9930Z Drainage of Right Pleural Cavity with Drainage Device, Percutaneous Approach (ICD-10-PCS; principal; 2022-04-09)
PROC: 3E0L3GC Introduction of Other Therapeutic Substance into Pleural Cavity, Percutaneous Approach (ICD-10-PCS; 2022-04-09)
DX: A41.9 Sepsis, unspecified organism (principal); J18.9 Pneumonia, unspecified organism; E43 Unspecified severe protein-calorie malnutrition; E87.1 Hypo-osmolality and hyponatremia; J91.8 Pleural effusion in other conditions classified elsewhere; J93.82 Other air leak; J98.11 Atelectasis; K92.0 Hematemesis; D64.9 Anemia, unspecified; B37.9 Candidiasis, unspecified; B95.4 Other streptococcus as the cause of diseases classified elsewhere; E86.1 Hypovolemia; Z83.3 Family history of diabetes mellitus; Z87.01 Personal history of pneumonia (recurrent); E66.9 Obesity, unspecified; Z20.822 Contact with and (suspected) exposure to COVID-19; Z68.35 Body mass index [BMI] 35.0-35.9, adult
CPT/HCPCS: 32555; 32557; 32561; 36415; 71045; 71250; 80048; 80053; 80202; 82945; 82962; 83036; 83540; 83550; 83605; 83615; 83880; 83986; 84145; 84157; 84484; 85025; 87040; 87075; 87077; 87426; 88112; 88305; 89050; 93005; 94640; 94760; 96365; 96375; C1892; C9113; J0696; J1650; J1815; J2405; J2543; J2920; J2930; J2997; J3010; J3370; J3490; J7030; J7060; 99285-25; G0378